=== PATIENT | female | born 1970 | race Caucasian/White ===

== ENCOUNTER 2023-07-22 06:37 | Outpatient (OUT) | payer OTHER, SELFPAY ==
[2023-07-22 07:24] LABS: Estimated Average Glucose 143 mg/dL; Glycohemoglobin A1C 6.6 % (4.5-6.2)
[2023-07-22 07:36] LABS: Alanine Aminotransferase 34 U/L (14-59); Albumin Globulin Ratio 1.1; Albumin Level 3.8 g/dL (3.4-5.0); Alkaline Phosphatase 99 U/L (46-116); Anion Gap 14.2; Aspartate Amino Transferase 22 U/L (15-37); BUN Creatinine Ratio 20.2; Bilirubin Total 0.5 mg/dL (0.2-1.0); Calcium 9.6 mg/dL (8.5-10.1); Carbon Dioxide 27.9 mmol/L (21.0-32.0); Chloride 104 mmol/L (98-107); Chol HDL Ratio 4.6; Cholesterol 216 mg/dL (<=200); Estimated GFR (African America >60 (>=60); Estimated GFR (Non-African Ame >60 (>=60); Free T3 3.41 pg/mL (2.18-3.98); Globulin 3.4 g/dL; Glucose 133 mg/dL (74-106); HDL Cholesterol 47 mg/dL (40-60); Potassium 4.1 mmol/L (3.5-5.1); Sodium 142 mmol/L (136-145); Thyroid Stimulating Hormone 2.475 uIU/mL (0.358-3.740); Total Protein 7.2 g/dL (6.4-8.2); Triglycerides 245 mg/dL (<=150)
[2023-07-22 07:45] LABS: Basophils Absolute Auto 0.1 10^3/uL (0.0-0.1); Basophils Percent Auto 0.8 % (0.2-2.0); Eosinophils Absolute Auto 0.2 10^3/uL (0.0-0.7); Eosinophils Percent Auto 2.3 % (0.9-7.0); Hematocrit 45.5 % (36.0-48.0); Hemoglobin 14.3 g/dL (12.0-16.0); Immature Granulocytes Abs Auto 0.03 10^3/uL (0.00-0.03); Immature Granulocytes Pct Auto 0.4 % (0.0-0.5); Lymphocytes Absolute Auto 2.6 10^3/uL (1.2-3.8); Lymphocytes Percent Auto 32.3 % (20.5-60.0); Mean Corpuscular HGB Conc 31.4 g/dL (29.9-35.2); Mean Corpuscular Hemoglobin 26.8 pg (26.7-34.0); Mean Corpuscular Volume 85.2 fL (81.0-99.0); Mean Platelet Volume 9.7 fL (9.5-13.5); Monocytes Absolute Auto 0.8 10^3/uL (0.3-0.8); Monocytes Percent Auto 9.6 % (1.7-12.0); Neutrophils Absolute Auto 4.4 10^3/uL (1.4-6.5); Neutrophils Percent Auto 54.6 % (43.0-75.0); Platelet Count 274 10^3/uL (150-450); Red Blood Count 5.34 10^6/uL (4.20-5.40); Red Cell Distribution Width 14.3 % (11.0-15.0)
== END 2023-07-22 06:38 | disposition home or self-care (01) ==
LOC: LAB 06:37
PROVIDERS: PCP Family Medicine; Visit Provider Family Medicine
DX: Z00.00 Encounter for general adult medical examination without abnormal findings (principal); D64.9 Anemia, unspecified; E78.01 Familial hypercholesterolemia; E11.9 Type 2 diabetes mellitus without complications; R53.83 Other fatigue; Z79.899 Other long term (current) drug therapy
CPT/HCPCS: 36415; 80053; 80061; 83036; 84436; 84443; 84481; 85025

== ENCOUNTER 2024-02-29 07:07 | Outpatient (OUT) | payer OTHER, SELFPAY ==
--- OUTSIDE RECORDS SUMMARY | 2024-02-29 07:11 | XMS_ITS | CCD ---
Author Organization [facility] Care Team Providers Care Rug Measurer Name Role Phone DR JOSE FINCH Primary Care Unavailable JOSETTE, DR GARCIA Consulting Unavailable DR JOSE FINCH Attending Unavailable JOSETTE, DR GARCIA Admitting Unavailable JOSETTE, DR GARCIA Primary Care Unavailable DR JOSE FINCH Consulting Unavailable DR JOSE FINCH Attending Unavailable JOSETTE, DR GARCIA Admitting Unavailable JOSETTE, DR GARCIA Admitting Unavailable DR JOSE FINCH Primary Care Unavailable DR JOSE FINCH Consulting Unavailable DR JOSE FINCH Attending Unavailable Jose Finch MD Primary Care Provider [phone] JOSE FINCH Primary Care Unavailable JEFF BLOOD Referring Unavailable Allergies Allergy Classification Reported Allergen(s) Allergy Type Date of Onset Reaction(s) Facility (1 source) Penicillin Drug Allergy [facility] Repository (1 source) Penicillins Propensity to adverse reactions to drug [facility] Medications Current Medications Medication Drug Class(es) Dates Sig (Normalized) Sig (Original) ezetimibe 10 mg oral tablet (1 source) Dietary Cholesterol Absorption Inhibitor Start: 06-18-2022 take 1 tablet by mouth once daily ezetimibe (ZETIA) 10 MG tablet TAKE 1 TABLET BY MOUTH EVERY DAY 0 06/18/2022 Active fluocinonide 0.0005 mg/mg topical ointment (1 source) Corticosteroid Start: 07-04-2022 fluocinonide (LIDEX) 0.05 % ointment APPLY SPARINGLY TO AFFECTED AREA TWICE A DAY 0 07/04/2022 Active nystatin 100 unt/mg topical powder (1 source) Polyene Antifungal Start: 07-18-2022 nystatin (MYCOSTATIN) 179644 UNIT/GM powder Indications: Yeast infection of the skin Apply 3 times daily as needed for skin infection 30 g 3 07/18/2022 Active pioglitazone 15 mg oral tablet (1 source) Peroxisome Proliferator Receptor alpha Agonist, Peroxisome Proliferator Receptor gamma Agonist, Thiazolidinedione Start: 05-24-2022 take 1 tablet by mouth once daily pioglitazone (ACTOS) 15 MG tablet TAKE 1 TABLET BY MOUTH EVERY DAY 0 05/24/2022 Active 0.25 mg, 0.5 mg dose 1.5 ml semaglutide 1.34 mg/ml pen injector (1 source) Start: 07-16-2022 OZEMPIC, 0.25 OR 0.5 MG/DOSE, 2 MG/1.5ML SOPN simvastatin 20 mg oral tablet (1 source) HMG-CoA Reductase Inhibitor Start: 06-10-2022 take 1 tablet by mouth once daily simvastatin (ZOCOR) 20 MG tablet TAKE 1 TABLET BY MOUTH EVERY DAY 0 06/10/2022 Active triamcinolone acetonide 1 mg/ml topical cream (1 source) Corticosteroid Start: 07-04-2022 triamcinolone (KENALOG) 0.1 % cream APPLY TO AFFECTED AREA TWICE A DAY 0 07/04/2022 Active Problems Active Problems Problem Classification Problem Date Documented Da te Episodic/Chronic Diabetes mellitus without complication (1 source) Type 2 diabetes mellitus without complications; Translations: [TYPE 2 DM WITHOUT COMPLICATIONS] Onset: 05-23-2022 Chronic Malaise and fatigue (1 source) Other fatigue; Translations: [OTHER FATIGUE] Onset: 05-23-2022 Episodic Unclassified (2 sources) CONTACT W/AND (SUSP) EXPOS COVID-19; Translations: [CONTACT W/AND (SUSP) EXPOS COVID-19] Onset: 06-15-2021 Unclassified (1 source) COUGH, UNSPECIFIED; Translations: [COUGH, UNSPECIFIED] Onset: 06-15-2021 Viral infection (1 source) COVID-19; Translations: [COVID-19] Onset: 06-15-2021 Past or Other Problems Problem Classification Problem Date Documented Da te Episodic/Chronic Other upper respiratory infections (1 source) Acute sinusitis, unspecified; Translations: [ACUTE SINUSITIS UNSPECIFIED] Onset: 06-15-2021 Episodic Unclassified (1 source) CONTACT W/AND (SUSP) EXPOS COVID-19; Translations: [CONTACT W/AND (SUSP) EXPOS COVID-19] Onset: 06-13-2021 Results Test Name Value Interpretation Reference Range Facility Cytologyon 07-18-2022 Cytology (NOTE) INTERPRETATION Vaginal material, (ThinPrep vial, Imaging-assisted review): Specimen Adequacy: Satisfactory for evaluation. Descriptive Diagnosis: Negative for intraepithelial lesion or malignancy. Logistics System Engineer: KUSH MILES(ASCP) Electronically Signed Out 07/31/2022 Source: A: Vaginal material, (ThinPrep vial, Imaging-assisted review) Clinical History Hysterectomy Z01.419 Routine department helper exam without abnormal findings High risk HPV DNA testing is requested if the diagnosis is abnormal GYNECOLOGIC CYTOLOGY REPORT Patient Name: CATHERINE MAURICE [facility] Rec: [id number] Path Number: [id number] [facility] CON[facility] PATHOLOG[facility] [address] [place] [id number] Normal [facility] Comment on above: Performed By: #### P PPVP #### [address] [address] [place] Rehairer: Carlos Ordonez MD [facility] BLD IMMUNO SCREENon OCCULT BLOOD Negative Normal NEGATIVE [facility] Comment on above: Performed By: #### O BSCRN #### [facility] [address] [place] [address] Dr. Rob Alarcon CBC AUTO DIFFon 05-19-2022 BASO # 0.1 103/ul Normal 0.0-0.1 [facility] Comment on above: Performed By: #### C BC #### [facility] [address] [place] [address] Dr. Rob Alarcon Basophils/100 WBC (Bld) 0.6 % Normal 0.2-2.0 [facility] Comment on above: Performed By: #### C BC #### [facility] [address] [place] [address] Dr. Rob Alarcon EO # 0.1 103/ul Normal 0.0-0.7 [facility] Comment on above: Performed By: #### C BC #### [facility] [address] [place] [address] Dr. Rob Alarcon Eosinophils/100 WBC (Bld) 1.2 % Normal 0.9-7.0 [facility] Comment on above: Performed By: #### C BC #### [facility] [address] [place] [address] Dr. Rob Alarcon Erythrocyte distribution width (RBC) [Ratio] 13.5 % Normal 11.0-15.0 [facility] Comment on above: Performed By: #### C BC #### [facility] [address] [place] [address] Dr. Rob Alarcon Hematocrit (Bld) [Volume fraction] 44.1 % Normal 36.0-48.0 [facility] Comment on above: Performed By: #### C BC #### [facility] [address] [place] [address] Dr. Rob Alarcon Hemoglobin (Bld) [Mass/Vol] 14.7 g/dL Normal 12.0-16.0 [facility] Comment on above: Performed By: #### C BC #### [facility] [address] [place] [address] Dr. Rob Alarcon IG # 0.14 10e3/ul Critically high 0.00-0.03 [facility] Comment on above: Performed By: #### C BC #### [facility] [address] [place] [address] Dr. Rob Alarcon IG % 1.7 % Critically high 0.0-0.5 [facility] Comment on above: Performed By: #### C BC #### [facility] [address] [place] [address] Dr. Rob Alarcon LYMPH # 2.6 103/ul Normal 1.2-3.8 [facility] Comment on above: Performed By: #### C BC #### [facility] [address] [place] [address] Dr. Rob Alarcon Lymphocytes/100 WBC (Bld) 31.4 % Normal 20.5-60.0 [facility] Comment on above: Performed By: #### C BC #### [facility] [address] [place] [address] Dr. Rob Alarcon MANUAL DIFF REQ NO Normal [facility] Comment on above: Performed By: #### C BC #### [facility] [address] [place] [address] Dr. Rob Alarcon MCH (RBC) [Entitic mass] 27.0 pg Normal 26.7-34.0 [facility] Comment on above: Performed By: #### C BC #### [facility] [address] [place] [address] Dr. Rob Alarcon MCHC (RBC) [Mass/Vol] 33.3 g/dL Normal 29.9-35.2 [facility] Comment on above: Performed By: #### C BC #### [facility] [address] [place] [address] Dr. Rob Alarcon MCV (RBC) [Entitic vol] 81.1 fL Normal 81.0-99.0 [facility] Comment on above: Performed By: #### C BC #### [facility] [address] [place] [address] Dr. Rob Alarcon MONO # 0.8 103/ul Normal 0.3-0.8 [facility] Comment on above: Performed By: #### C BC #### [facility] [address] [place] [address] Dr. Rob Alarcon Monocytes/100 WBC (Bld) 9.1 % Normal 1.7-12.0 [facility] Comment on above: Performed By: #### C BC #### [facility] [address] [place] [address] Dr. Rob Alarcon NEUT # 4.7 103/ul Normal 1.4-6.5 [facility] Comment on above: Performed By: #### C BC #### [facility] [address] [place] [address] Dr. Rob Alarcon Neutrophils/100 WBC (Bld) 56.0 % Normal 43.0-75.0 [facility] Comment on above: Performed By: #### C BC #### [facility] [address] [place] [address] Dr. Rob Alarcon Platelet mean volume (Bld) [Entitic vol] 9.2 fL Critically low 9.5-13.5 [facility] Comment on above: Performed By: #### C BC #### [facility] [address] [address] [address] Rob Alarcon PLT 308 103/ul Normal 150-450 [facility] Comment on above: Performed By: #### C BC #### [facility] [address] [address] [address] Rob Alarcon RBC 5.44 106/ul Critically high 4.20-5.40 [facility] Comment on above: Performed By: #### C BC #### [facility] [address] [address] [address] Rob Alarcon WBC 8.3 103/ul Normal 4.0-11.0 [facility] Comment on above: Performed By: #### C BC #### [facility] [address] [place] [address] Dr. Rob Alarcon FREE T3on 05-19-2022 FREE T3 3.38 pg/mlL Normal 2.18-3.98 [facility] Comment on above: Performed By: #### L IPID, TSH, T4, CMP, FT3 #### [facility] [address] [place] [address] Dr. Rob Alarcon GLYCOHEMOGLOBIN A1Con 2021 ADA RECOMMENDATION SEE BELOW Normal [facility] Comment on above: Result Comment: ADA RECOMMENDED LIMIT 4.0 - 6.0 ADA THERAPEUTIC TARGET < 7.0 ACTION SUGGESTED > 7.0 Performed By: #### A 1C #### [facility] [address] [place] [address] Dr. Rob Alarcon Glucose [Mass/Vol] 203 mg/dL Normal [facility] Comment on above: Performed By: #### A 1C #### [facility] [address] [place] [address] Dr. Rob Alarcon HbA1c (Bld) [Mass fraction] 8.7 % Critically high 4.5-6.2 [facility] Comment on above: Performed By: #### A 1C #### [facility] [address] [address] [address] Rob Alarcon LIPID PROFILEon 05-19-2022 CHOL-HDL RATIO NORM SEE BELOW Normal [facility] Comment on above: Result Comment: 3.3 - 4.4 LOW RISK 4.4 - 7.1 AVERAGE RISK 7.1 - 11.0 MODERATE RISK >11.0 HIGH RISK Performed By: #### L IPID, TSH, T4, CMP, FT3 #### [facility] [address] [place] [address] Dr. Rob Alarcon Cholesterol [Mass/Vol] 192 mg/dL Normal <=200 [facility] Comment on above: Performed By: #### L IPID, TSH, T4, CMP, FT3 #### [facility] [address] [place] [address] Dr. Rob Alarcon Cholesterol in HDL [Mass/Vol] 47 mg/dL Normal 40-60 [facility] Comment on above: Performed By: #### L IPID, TSH, T4, CMP, FT3 #### [facility] [address] [place] [address] Dr. Rob Alarcon Cholesterol in LDL [Mass/Vol] 82.6 mg/dL Normal [facility] Comment on above: Performed By: #### L IPID, TSH, T4, CMP, FT3 #### [facility] [address] [place] [address] Dr. Rob Alarcon Cholesterol.total/Ch olesterol in HDL [Mass ratio] 4.1 {ratio} Normal [facility] Comment on above: Performed By: #### L IPID, TSH, T4, CMP, FT3 #### [facility] [address] [place] [address] Dr. Rob Alarcon HDL NORMAL > or = 60 mg/dl - LO W CARDIOVASCULAR RISK <40 mg/dl - HIGH CARDIOVASCULAR RISK Normal [facility] Comment on above: Performed By: #### L IPID, TSH, T4, CMP, FT3 #### [facility] [address] [place] [address] Dr. Rob Alarcon LDL CALC NORMAL SEE BELOW Normal [facility] Comment on above: Result Comment: <100 mg/dl OPTIMAL 100 - 129 mg/dl NEAR OR ABOVE OPTIMAL 130 - 159 mg/dl BORDERLINE HIGH 160 - 189 mg/dl HIGH >190 mg/dl VERY HIGH Performed By: #### L IPID, TSH, T4, CMP, FT3 #### [facility] [address] [place] [address] Dr. Rob Alarcon Triglyceride [Mass/Vol] 312 mg/dL Critically high <=150 [facility] Comment on above: Performed By: #### L IPID, TSH, T4, CMP, FT3 #### [facility] [address] [place] [address] Dr. Rob Alarcon VLDL CALC 62.4 mg/dL Normal [facility] Comment on above: Performed By: #### L IPID, TSH, T4, CMP, FT3 #### [facility] [address] [place] [address] Dr. Rob Alarcon PROF 14(COMP METB)on 022 Albumin [Mass/Vol] 3.9 g/dL Normal 3.4-5.0 [facility] Comment on above: Performed By: #### L IPID, TSH, T4, CMP, FT3 #### [facility] [address] [place] [address] Dr. Rob Alarcon Albumin/Globulin [Mass ratio] 1.2 {ratio} Normal [facility] Comment on above: Performed By: #### L IPID, TSH, T4, CMP, FT3 #### [facility] [address] [place] [address] Dr. Rob Alarcon ALP [Catalytic activity/Vol] 162 U/L Critically high 46-116 [facility] Comment on above: Performed By: #### L IPID, TSH, T4, CMP, FT3 #### [facility] [address] [place] [address] Dr. Rob Alarcon ALT [Catalytic activity/Vol] 55 U/L Normal 14-59 [facility] Comment on above: Performed By: #### L IPID, TSH, T4, CMP, FT3 #### [facility] [address] [place] [address] Dr. Rob Alarcon Anion gap [Moles/Vol] 12.4 mmol/L Normal [facility] Comment on above: Performed By: #### L IPID, TSH, T4, CMP, FT3 #### [facility] [address] [address] [address] Rob Alarcon AST [Catalytic activity/Vol] 34 U/L Normal 15-37 [facility] Comment on above: Performed By: #### L IPID, TSH, T4, CMP, FT3 #### [facility] [address] [address] [address] Rob Alarcon Bilirubin [Mass/Vol] 0.4 mg/dL Normal 0.2-1.0 [facility] Comment on above: Performed By: #### L IPID, TSH, T4, CMP, FT3 #### [facility] [address] [place] [address] Dr. Rob Alarcon Calcium [Mass/Vol] 9.2 mg/dL Normal 8.5-10.1 [facility] Comment on above: Performed By: #### L IPID, TSH, T4, CMP, FT3 #### [facility] [address] [address] [address] Rob Alarcon Chloride [Moles/Vol] 101 mmol/L Normal 98-107 [facility] Comment on above: Performed By: #### L IPID, TSH, T4, CMP, FT3 #### [facility] [address] [address] [address] Rob Alarcon CO2 [Moles/Vol] 28.7 mmol/L Normal 21.0-32.0 [facility] Comment on above: Performed By: #### L IPID, TSH, T4, CMP, FT3 #### [facility] [address] [address] [address] Rob Alarcon Creatinine [Mass/Vol] 0.81 mg/dL Normal 0.55-1.02 [facility] Comment on above: Performed By: #### L IPID, TSH, T4, CMP, FT3 #### [facility] [address] [address] [address] Rob Alarcon EGFR-AF BENINESE >60 Normal >=60 [facility] Comment on above: Performed By: #### L IPID, TSH, T4, CMP, FT3 #### [facility] [address] [address] [address] Rob Alarcon EGFR-NON AF BENINESE >60 Normal >=60 [facility] Comment on above: Performed By: #### L IPID, TSH, T4, CMP, FT3 #### [facility] [address] [address] [address] Rob Alarcon Globulin (S) [Mass/Vol] 3.3 g/dL Normal [facility] Comment on above: Performed By: #### L IPID, TSH, T4, CMP, FT3 #### [facility] [address] [address] [address] Rob Alarcon Glucose [Mass/Vol] 186 mg/dL Critically high 74-106 [facility] Comment on above: Performed By: #### L IPID, TSH, T4, CMP, FT3 #### [facility] [address] [place] [address] Dr. Rob Alarcon Potassium [Moles/Vol] 4.1 mmol/L Normal 3.5-5.1 [facility] Comment on above: Performed By: #### L IPID, TSH, T4, CMP, FT3 #### [facility] [address] [place] [address] Dr. Rob Alarcon Protein [Mass/Vol] 7.2 g/dL Normal 6.4-8.2 [facility] Comment on above: Performed By: #### L IPID, TSH, T4, CMP, FT3 #### [facility] [address] [place] [address] Dr. Rob Alarcon Sodium [Moles/Vol] 138 mmol/L Normal 136-145 [facility] Comment on above: Performed By: #### L IPID, TSH, T4, CMP, FT3 #### [facility] [address] [place] [address] Dr. Rob Alarcon Urea nitrogen [Mass/Vol] 10.0 mg/dL Normal 7.0-18.0 [facility] Comment on above: Performed By: #### L IPID, TSH, T4, CMP, FT3 #### [facility] [address] [place] [address] Dr. Rob Alarcon Urea nitrogen/Creatinine [Mass ratio] 12.3 mg/mg Normal [facility] Comment on above: Performed By: #### L IPID, TSH, T4, CMP, FT3 #### [facility] [address] [place] [address] Dr. Rob Alarcon T4on 05-19-2022 T4 [Mass/Vol] 8.10 ug/dL Normal 4.80-13.90 [facility] Comment on above: Performed By: #### L IPID, TSH, T4, CMP, FT3 #### [facility] [address] [place] [address] Dr. Rob Alarcon TSHon 05-19-2022 TSH 1.120 uIU/mL Normal 0.358-3.740 [facility] Comment on above: Performed By: #### L IPID, TSH, T4, CMP, FT3 #### [facility] [address] [place] [address] Dr. Rob Alarcon VITAMIN D 25 OHon 05-19-2022 VIT D 25-OH 47.4 ng/mL Normal [facility] Comment on above: Performed By: #### V ITAD #### [facility] [address] [place] [address] Dr. Rob Alarcon VIT D RANGES SEE BELOW Normal [facility] Comment on above: Result Comment: <20 ng/mL Vit D deficient 20 - <30 ng/mL Vit D insufficient 30 - 100 ng/mL Vit D sufficient >100 ng/mL Potential Toxicity Performed By: #### V ITAD #### [facility] [address] [place] [address] Dr. Rob Alarcon Covid-19 PCR ([facility]on 06-03 SARS-CoV-2 (COVID-19) RNA MARGARITA+probe Ql (Unsp spec) Detected Critically abnormal NOT DETECTED [facility] Comment on above: Result Comment: This test is not yet approved or cleared by the [place] FDA. When there are no FDA-approved or cleared tests available, and other criteria are met, FDA can make tests available under an emergency access mechanism called an Emergency Use Authorization (EUA). The EUA for this test is supported by the Rehabilitation Therapy Aide of Health and Human Service's (HHS's) declaration that circumstances exist to justify the emergency use of in vitro diagnostics for the detection and/or diagnosis of the virus that causes COVID-19. This EUA will remain in effect (meaning this test can be used) for the duration of the COVID-19 declaration justifying emergency of IVDs, unless it is terminated or revoked by FDA (after which the test may no longer be used). Performed By: #### C [facility] #### [facility] [address] [place] [address] Dr. Rob Alarcon General Surgery Office/Clini c Noteon 10-31-2020 General Surgery Office/Clinic Note Chief Complaint post operative visit. HPI Staff 7 day s/p Wide excision basal cell cancer, right nares completed on 10/19/20. Denies experiencing symptoms of pain, bleeding, or discharge. Not taking any medications for pain. History of Present Illness 1 week s/p wide excision recurrent basal cell carcinoma right nares; doing well, no drainage or pain; pathology with negative margins. Review of Systems PHQ Score Initial Depression Screen Score: 0 ROS - Provider Constitutional: no fever, no sweats, no weight loss. Eyes: no glasses, no blurred vision, no visual loss. ENMT: no dentures, no hoarseness, no swallowing difficulties, no hearing loss, no ear infection(s), no nose bleeds. Cardiovascular: high blood pressure, no chest pain, regular heartbeat, no heart murmur. Respiratory: no shortness of breath, no cough, no asthma, no wheezing. Gastrointestinal: no nausea, no vomiting, no diarrhea, no constipation, no blood in stool, no change in bowel habits, no abdominal pain, no hepatitis. Genitourinary: no kidney stones, no urine infection, no dysuria. Musculoskeletal: no pain, no weakness. Skin: no changing moles, no rash, no skin lumps. Neurologic: no seizures, no epilepsy, no headache. Psychiatric: no emotional or psychiatric problem. Heme/Lymph: no bleeding problems, no anemia, no blood clots, no transfusions. Allergy/Immunologic: no swollen lymph nodes/glands, no IV drug abuse. Other: Additional ROS info: Except as noted in the above Review of Systems and in the History of Present Illness, all other systems have been reviewed and are negative or noncontributory. Physical Exam Vitals & Measurements T: 36.8 ?C (Tympanic) skin: incision healing well, no erythema or drainage. Assessment/Plan 1. Basal cell carcinoma (BCC) of right side of nose (C44.311: Basal cell carcinoma of skin of nose) doing well, sutures removed; call with problems/questions. Follow-up No qualifying data available Problem List/Past Medical History Ongoing Adult BMI 37.0-37.9 kg/sq m Anxiety Basal cell carcinoma (BCC) of right side of nose Depression Diabetic peripheral neuropathy DM (diabetes mellitus) Dysphagia HTN (hypertension) Hypercholesterolemia Neoplasm of uncertain behavior of skin of face Nevus Scoliosis Tubular adenoma Tubular adenoma of colon Uterine fibroid Historical BMI 36.0-36.9,adult Occult blood positive stool Procedure/Surgical History Colonoscopy (2010), Abdominal hysterectomy, Bilateral tubal ligation, Caesarean section, Cholecystectomy. Medications Nexium 40mg Cap - DR, 1 tab(s), Oral, Daily simvastatin 20 mg Tab, 20 mg= 1 tab(s), Oral, Once a day (at bedtime) Zetia 10 mg Tab, 10 mg= 1 tab(s), Oral, Daily Allergies penicillin (Rash) Social History Alcohol - Denies Alcohol Use, 02/11/2019 Substance Abuse - Denies Substance Abuse, 02/11/2019 Tobacco Former smoker, quit more than 30 days ago Tobacco Use:. Never Smokeless Tobacco Use:. Stopped age 26 Years., 10/26/2020 Family History Bilateral primary ovarian cancer: Aunt. Primary malignant neoplasm of lung: Brother. Immunizations Vaccine Date Status Comments influenza virus vaccine, inactivated - Not Given Patient Refuses Normal [facility] Comment on above: Result Comment: Elec tronically Signed By: CORTES PEREZ, Miah Love\Date and Time Signed: 10/31/20 10:11 EDT Ambulatory Clinical Summaryo n 10-26-2020 Ambulatory Clinical Summary {[id number] Normal [facility] Pathology Noteon 10-25-2020 Pathology Note [id number] 0CD:127 Normal [facility] Operative Reporton Operative Report [id number] 0CD:127 Normal [facility] Lab Reportson 10-17-2020 Lab Reports [id number] 0CD:127 Normal [facility] Consent for Procedure/Surger yon 10-06-2020 Consent for Procedure/Surgery [id number] 0CD:127 Normal [facility] Ambulatory Clinical Summaryo n 10-05-2020 Ambulatory Clinical Summary {[id number] Normal [facility] Patient Educationon 10-06-19 Patient Education Oncology Basal Cell Carcinoma Basal cell carcinoma is the most common form of skin cancer. It begins in the basal cells, which are at the bottom of the outer skin layer (epidermis). Basal cell carcinoma can almost always be cured. It rarely spreads to other areas of the body (metastasizes). It may come back at the same location (recur), but it can be treated again if this happens. Basal cell carcinoma occurs most often on parts of the body that are frequently exposed to the sun, such as: ? Parts of the head, including the scalp or face. ? Ears. ? Neck. ? Arms or legs. ? Backs of the hands. What are the causes? This condition is usually caused by exposure to ultraviolet (UV) light. UV light may come from the sun or from tanning beds. Other causes include: ? Exposure to a highly poisonous metal (arsenic). ? Exposure to high-energy X-rays (radiation). ? Exposure to toxic tars and oils. ? Certain genetic conditions, such as a condition that makes a person sensitive to sunlight (xeroderma pigmentosum). What increases the risk? You are more likely to develop this condition if: ? You are older than 40 years of age. ? You have: ? Fair skin (light complexion). ? Blond or red hair. ? Blue, green, or ceron eyes. ? Childhood freckling. ? Had sun exposure over long periods of time, especially during childhood. ? Had repeated sunburns. ? A weakened immune system. ? Been exposed to certain chemicals, such as tar, soot, and arsenic. ? Chronic inflammatory conditions. ? Chronic infections. ? You use tanning beds. What are the signs or symptoms? The main symptom of this condition is a growth or lesion on the skin. ? The shape and color of the growth or lesion may vary. The main types include: ? An open sore that may remain open for 3 weeks or longer. The sore may bleed or crust. This type of lesion can be an early sign of basal cell carcinoma. Basal cell carcinoma often shows up as a sore that does not heal. ? A reddish area that may crust, itch, or cause discomfort. This may occur on areas that are exposed to the sun. These patches might be easier to feel than to see. ? A shiny or clear bump that is red, white, or pink. In people who have dark hair, the bump is often chinchilla, black, or brown. These bumps can look like moles. ? A pink growth with a raised border. The growth will have a crusted and indented area in the center. Small blood vessels may appear on the surface of the growth as it gets bigger. ? A scar-like area that looks like shiny, stretched skin. The area may be white, yellow, or waxy. It often has irregular borders. This may be a sign of more aggressive basal cell carcinoma. How is this diagnosed? This condition may be diagnosed with: ? A physical exam. ? Removal of a tissue sample to be examined under a microscope (biopsy). How is this treated? Treatment for this condition involves removing the cancerous tissue. The method that is used for this depends on the type, size, location, and number of tumors. Possible treatments include: ? Mohs surgery. In this procedure, the cancerous skin cells are removed layer by layer until all of the tumor has been removed. ? Surgical removal (excision) of the tumor. This involves removing the entire tumor and a small amount of normal skin that surrounds it. ? Cryosurgery. This involves freezing the tumor with liquid nitrogen. ? Plastic surgery. The tumor is removed, and healthy skin from another part of the body is used to cover the wound. This may be done for large tumors that are in areas where it is not possible to stretch the nearby skin to sew the edges of the wound together. ? Radiation. This may be used for tumors on the face. ? Photodynamic therapy. A chemical cream is applied to the skin, and light exposure is used to activate the chemical. ? Electrodesiccation and curettage. This involves alternately scraping and burning the tumor while using an electric current to control bleeding. ? Chemical treatments, such as imiquimod cream and interferon injections. These may be used to remove superficial tumors with minimal scarring. Follow these instructions at home: ? Avoid direct exposure to the sun. ? Do self-exams as told by your health care provider. Look for new spots or changes in your skin. ? Keep all follow-up visits as told by your health care provider. This is important. How is this prevented? ? Avoid the sun when it is the strongest. This is usually between 10 a.m. and 4 p.m. ? When you are out in the sun, use a sunscreen that has a sun protection factor (SPF) of at least 30. ? Apply sunscreen at least 30 minutes before exposure to the sun. ? Reapply sunscreen every 2?4 hours while you are outside. Also reapply it after swimming and after excessive sweating. ? Always wear hats, protective clothing, and UV-blocking sunglasses when you are outdoors. ? Do not use tanning bed (more content not included)... Normal [facility] Patient Education Physical Medicine an d Rehabilitation Exercising to Lose Weight Exercise is structured, repetitive physical activity to improve fitness and health. Getting regular exercise is important for everyone. It is especially important if you are overweight. Being overweight increases your risk of heart disease, stroke, diabetes, high blood pressure, and several types of cancer. Reducing your calorie intake and exercising can help you lose weight. Exercise is usually categorized as moderate or vigorous intensity. To lose weight, most people need to do a certain amount of moderate-intensity or vigorous-intensity exercise each week. Moderate-intensity exercise Moderate-intensity exercise is any activity that gets you moving enough to burn at least three times more energy (calories) than if you were sitting. Examples of moderate exercise include: ? Walking a mile in 15 minutes. ? Doing light yard work. ? Biking at an easy pace. Most people should get at least 150 minutes (2 hours and 30 minutes) a week of moderate-intensity exercise to maintain their body weight. Vigorous-intensity exercise Vigorous-intensity exercise is any activity that gets you moving enough to burn at least six times more calories than if you were sitting. When you exercise at this intensity, you should be working hard enough that you are not able to carry on a conversation. Examples of vigorous exercise include: ? Running. ? Playing a team sport, such as football, basketball, and soccer. ? Jumping rope. Most people should get at least 75 minutes (1 hour and 15 minutes) a week of vigorous-intensity exercise to maintain their body weight. How can exercise affect me? When you exercise enough to burn more calories than you eat, you lose weight. Exercise also reduces body fat and builds muscle. The more muscle you have, the more calories you burn. Exercise also: ? Improves mood. ? Reduces stress and tension. ? Improves your overall fitness, flexibility, and endurance. ? Increases bone strength. The amount of exercise you need to lose weight depends on: ? Your age. ? The type of exercise. ? Any health conditions you have. ? Your overall physical ability. Talk to your health care provider about how much exercise you need and what types of activities are safe for you. What actions can I take to lose weight? Nutrition ? Make changes to your diet as told by your health care provider or diet and nutrition tech (dietitian). This may include: ? Eating fewer calories. ? Eating more protein. ? Eating less unhealthy fats. ? Eating a diet that includes fresh fruits and vegetables, whole grains, low-fat dairy products, and lean protein. ? Avoiding foods with added fat, salt, and sugar. ? Drink plenty of water while you exercise to prevent dehydration or heat stroke. Activity ? Choose an activity that you enjoy and set realistic goals. Your health care provider can help you make an exercise plan that works for you. ? Exercise at a moderate or vigorous intensity most days of the week. ? The intensity of exercise may vary from person to person. You can tell how intense a workout is for you by paying attention to your breathing and heartbeat. Most people will notice their breathing and heartbeat get faster with more intense exercise. ? Do resistance training twice each week, such as: ? Push-ups. ? Sit-ups. ? Lifting weights. ? Using resistance bands. ? Getting short amounts of exercise can be just as helpful as long structured periods of exercise. If you have trouble finding time to exercise, try to include exercise in your daily routine. ? Get up, stretch, and walk around every 30 minutes throughout the day. ? Go for a walk during your lunch break. ? Park your car farther away from your destination. ? If you take public transportation, get off one stop early and walk the rest of the way. ? Make phone calls while standing up and walking around. ? Take the stairs instead of elevators or escalators. ? Wear comfortable clothes and shoes with good support. ? Do not exercise so much that you hurt yourself, feel dizzy, or get very short of breath. Where to find more information ? [place] Department of Health and Human Services: www.hhs.gov ? Centers for Disease Control and Prevention (CDC): www.cdc.gov Contact a health care provider: ? Before starting a new exercise program. ? If you have questions or concerns about your weight. ? If you have a medical problem that keeps you from exercising. Get help right away if you have any of the following while exercising: ? Injury. ? Dizziness. ? Difficulty breathing or shortness of breath that does not go away when you stop exercising. ? Chest pain. ? Rapid heartbeat. Summary ? Being overweight increases your risk of heart disease, stroke, diabetes, high blood pressure, and several types of cancer. ? Losing weight borrero (more content not included)... Normal [facility] Ambulatory Clinical Summaryo n 07-13-2020 Ambulatory Clinical Summary {[id number] Normal [facility] General Surgery Office/Clini c Noteon 07-13-2020 General Surgery Office/Clinic Note HPI Staff One week post operative visit following excision of neoplasm from nose. Patient states sutures fell out on Saturday. Denies bleeding or drainage from the incision. History of Present Illness 1 week s/p excisional biopsy nonhealing lesion right nares; pathology with basal cell carcinoma, lesion fell apart when excised, very small, unable to determine margins; Review of Systems ROS - Provider Constitutional: no fever, no sweats, no weight loss. Eyes: no glasses, no blurred vision, no visual loss. ENMT: no dentures, no hoarseness, no swallowing difficulties, no hearing loss, no ear infection(s), no nose bleeds. Cardiovascular: normal blood pressure, no chest pain, regular heartbeat, no heart murmur. Respiratory: no shortness of breath, no cough, no asthma, no wheezing. Gastrointestinal: no nausea, no vomiting, no diarrhea, no constipation, no blood in stool, no change in bowel habits, no abdominal pain, no hepatitis. Genitourinary: no kidney stones, no urine infection, no dysuria. Musculoskeletal: no pain, no weakness. Skin: no changing moles, no rash, no skin lumps. Neurologic: no seizures, no epilepsy, no headache. Psychiatric: no emotional or psychiatric problem. Heme/Lymph: no bleeding problems, no anemia, no blood clots, no transfusions. Allergy/Immunologic: no swollen lymph nodes/glands, no IV drug abuse. Other: Additional ROS info: Except as noted in the above Review of Systems and in the History of Present Illness, all other systems have been reviewed and are negative or noncontributory. Physical Exam skin: incision healing well, no drainage or erythema Assessment/Plan 1. Basal cell carcinoma (BCC) of right side of nose (C44.311: Basal cell carcinoma of skin of nose) monitor area for nonhealing or nodularity; if any evidence of recurrence, will proceed with wide excision at the hospital under local anesthesia; call with problems/questions. Follow-up No qualifying data available Problem List/Past Medical History Ongoing Anxiety Basal cell carcinoma (BCC) of right side of nose BMI 36.0-36.9,adult Depression Diabetic peripheral neuropathy DM (diabetes mellitus) Dysphagia HTN (hypertension) Hypercholesterolemia Neoplasm of uncertain behavior of skin of face Nevus Scoliosis Tubular adenoma Tubular adenoma of colon Uterine fibroid Historical Occult blood positive stool Procedure/Surgical History Colonoscopy (2010), Abdominal hysterectomy, Bilateral tubal ligation, Caesarean section, Cholecystectomy. Medications Adipex-P 37.5 mg Tab, 37.5 mg= 1 tab(s), Oral, Daily buPROPion 300 mg XL /24 hrs, 300 mg= 1 tab(s), Oral, Daily Nexium 40mg Cap - DR, 1 tab(s), Oral, Daily simvastatin 20 mg Tab, 20 mg= 1 tab(s), Oral, Once a day (at bedtime) triamcinolone Top 0.1% Crm, 1 valerie, Topical, BID Zetia 10 mg Tab, 10 mg= 1 tab(s), Oral, Daily Allergies penicillin (Rash) Social History Alcohol - Denies Alcohol Use, 02/11/2019 Substance Abuse - Denies Substance Abuse, 02/11/2019 Tobacco Former smoker, quit more than 30 days ago Tobacco Use:. Never Smokeless Tobacco Use:. Stopped age 26 Years., 06/29/2020 Family History Bilateral primary ovarian cancer: Aunt. Primary malignant neoplasm of lung: Brother. Immunizations Vaccine Date Status Comments influenza virus vaccine, inactivated - Not Given Patient Refuses Normal [facility] Comment on above: Result Comment: Elec tronically Signed By: CORTES PEREZ, Miah Love\Date and Time Signed: 07/13/20 13:31 EST Pathology Noteon 07-13-2020 Pathology Note [id number] 0CD:127 Normal [facility] Ambulatory Clinical Summaryo n 07-06-2020 Ambulatory Clinical Summary {[id number] Normal [facility] General Surgery Office/Clini c Noteon 07-06-2020 General Surgery Office/Clinic Note History of Present Illness for excision nonhealing lesion right nares; no change. Review of Systems ROS - Provider Constitutional: no fever, no sweats, no weight loss. Eyes: no glasses, no blurred vision, no visual loss. ENMT: no dentures, no hoarseness, no swallowing difficulties, no hearing loss, no ear infection(s), no nose bleeds. Cardiovascular: normal blood pressure, no chest pain, regular heartbeat, no heart murmur. Respiratory: no shortness of breath, no cough, no asthma, no wheezing. Gastrointestinal: no nausea, no vomiting, no diarrhea, no constipation, no blood in stool, no change in bowel habits, no abdominal pain, no hepatitis. Genitourinary: no kidney stones, no urine infection, no dysuria. Musculoskeletal: no pain, no weakness. Skin: no changing moles, no rash, no skin lumps. non healing lesion, right nares Neurologic: no seizures, no epilepsy, no headache. Psychiatric: no emotional or psychiatric problem. Heme/Lymph: no bleeding problems, no anemia, no blood clots, no transfusions. Allergy/Immunologic: no swollen lymph nodes/glands, no IV drug abuse. Other: Additional ROS info: Except as noted in the above Review of Systems and in the History of Present Illness, all other systems have been reviewed and are negative or noncontributory. Physical Exam skin: 3 mm open area right nares, no drainage, no erythema. Procedure right nares lesion prepped and draped, anesthetized with 1% lidocaine, area excised with # 15 blade, total length 3 mm, closed with interrupted 5-0 nylon sutures, tolerated well, ebl < 2ml. Assessment/Plan 1. Neoplasm of uncertain behavior of skin of face (D48.5: Neoplasm of uncertain behavior of skin) excised under local anesthesia; tolerated well; follow up in 1 week. call sooner if problems/questions. Ordered: Pathology Tissue Exam Follow-up No qualifying data available Problem List/Past Medical History Ongoing Anxiety BMI 36.0-36.9,adult Depression Diabetic peripheral neuropathy DM (diabetes mellitus) Dysphagia HTN (hypertension) Hypercholesterolemia Neoplasm of uncertain behavior of skin of face Nevus Scoliosis Tubular adenoma Tubular adenoma of colon Uterine fibroid Historical Occult blood positive stool Procedure/Surgical History Colonoscopy (2010), Abdominal hysterectomy, Bilateral tubal ligation, Caesarean section, Cholecystectomy. Medications Adipex-P 37.5 mg Tab, 37.5 mg= 1 tab(s), Oral, Daily buPROPion 300 mg XL /24 hrs, 300 mg= 1 tab(s), Oral, Daily Nexium 40mg Cap - DR, 1 tab(s), Oral, Daily simvastatin 20 mg Tab, 20 mg= 1 tab(s), Oral, Once a day (at bedtime) triamcinolone Top 0.1% Crm, 1 valerie, Topical, BID Zetia 10 mg Tab, 10 mg= 1 tab(s), Oral, Daily Allergies penicillin (Rash) Social History Alcohol - Denies Alcohol Use, 02/11/2019 Substance Abuse - Denies Substance Abuse, 02/11/2019 Tobacco Former smoker, quit more than 30 days ago Tobacco Use:. Never Smokeless Tobacco Use:. Stopped age 26 Years., 06/29/2020 Family History Bilateral primary ovarian cancer: Aunt. Primary malignant neoplasm of lung: Brother. Immunizations Vaccine Date Status Comments influenza virus vaccine, inactivated - Not Given Patient Refuses [facility] Comment on above: Result Comment: Elec tronically Signed By: CORTES PEREZ, Miah Sher\.br\Date and Time Signed: 07/06/20 16:42 EST Provider Letter FTon 07-06 Provider Letter [facility] [place] Josette, [facility] [place] [address] Re: CATHERINE MAURICE Date of : 1970 Thank you for your referral of Catherine Maurice who was seen on consultation for neoplasm of the nose. An excisional biopsy is planned. I have enclosed my consultation notes for your review. I will be happy to follow Catherine should her symptoms persist. Sincerely, \ Miah Rubalcava MD General Surgery [facility] Formson 06-30-2020 Forms [id number] 0CD:127 [facility] Ambulatory Clinical Summaryo n 06-29-2020 Ambulatory Clinical Summary {[id number] [facility] Patient Educationon 06-29-19 21 Patient Education Preventing Skin Cancer, Adult Skin cancer is the most common type of cancer. There are three main types. Squamous cell and basal cell skin cancer are the most common. Melanoma skin cancer is the most dangerous type. Most skin cancers are caused by skin damage from exposure to ultraviolet (UV) light. UV light comes from the sun and from artificial tanning beds. Suntans and sunburns result from exposure to UV light. Skin cancer occurs most often in older people, but it is usually the result of damage done earlier in life. The tans and sunburns you get at any age can lead to skin cancer in the future. To help prevent this, you can take steps to protect yourself. What actions can I take to protect myself from skin cancer? Many people like to get a chinchilla, especially in the summer or when on vacation. However, chinchilla or burned skin is a sign of skin damage. It increases your risk for skin cancer. To lower your risk: Avoid exposure to UV light ? Try to stay out of the sun between 10 a.m. and 4 p.m. whenever possible. This is when the sun is at its strongest. Seek the shade during this time. ? Remember that you can also be exposed to UV rays on cloudy or hazy days. Sun exposure can be risky year-round, not just in the summer. ? Do not use a sunlamp, tanning bed, or tanning ferreira to get a chinchilla. If you really want a chinchilla, use an artificial tanning lotion. ? Avoid getting sunburned. Sunburns are more common on bright godfrey days, especially when you are in areas where the sun is reflected off water or snow. Use sunscreen and protective clothing ? Always use sunscreen?either a cream, lotion, or spray?when you are out in the sun. Keep sunscreen handy, such as in your gym bag or in your car, so that you will have it when you need it. ? Use a sunscreen with a sun protection factor (SPF) of at least 15. Use an SPF of 30 or higher if you are in bright sun, especially when you are out in the snow or on the water. ? Make sure your sunscreen protects you from UVA and UVB light. ? Use an adequate amount of sunscreen to cover exposed areas of skin. Put it on 30 minutes before you go out. Reapply it every 2 hours or anytime you come out of the water. ? When you are out in the sun, wear a broad-brimmed hat and clothing that covers your arms and legs. Wear wraparound sunglasses. Check your skin for changes ? Check your skin often from head to toe to look for any changes in the size, color, or shape of any moles or freckles. Check for any new moles or moles that bleed or become itchy. See your health care provider if you notice changes. ? Ask your health care provider about a total skin check. Ask if it should be part of your yearly physical or if you need to see a landing support specialist (contractor field hauling). Take other preventive measures ? Avoid exposure to harmful chemicals, such as arsenic. ? Have your home's water tested for arsenic and other chemicals. ? Take protective measures to avoid exposure to chemicals at work. ? Do not smoke any tobacco products, such as cigarettes, cigars, pipes, and e-cigarettes. If you need help quitting, ask your health care provider. ? Keep your immune system healthy. ? Stay up to date on all vaccines, including the human papillomavirus (HPV) vaccine. ? Eat at least 5 servings of fruits and vegetables every day. Why are these changes important? About 1 of every 5 people will get skin cancer. The best way to reduce your risk is to avoid skin damage from UV light. If you have teenagers in your house, they should know that just five bad sunburns as a teen could double their risk of skin cancer in the future. If you have younger children, always make sure to protect their skin from the sun. These changes can help reduce your risk of skin cancer, and they will also provide other health benefits, such as the following: ? Protecting your skin from the sun can help prevent painful sunburns, sun poisoning, and other skin damage and blemishes. This is especially important if: ? You have pale white skin, freckles, and red hair. ? You burn easily. ? Avoiding exposure to harmful chemicals can help prevent damage to other tissues in your body, such as your lungs, and prevent other types of cancer. ? Avoiding smoking tobacco can reduce your risk for other types of cancer and other health problems. ? Eating a healthy diet is good for your overall health. What can happen if changes are not made? If you do not make these changes, you will be at higher risk for skin cancer. If you develop skin cancer, the treatments could result in lost time from work and changes in your appearance from scars. The most dangerous type of skin cancer, melanoma, can be deadly if not found early. Where to find support For more support, talk to your primary health care provider or contractor field hauling. Where to find more information Learn more about skin cancer from: (more content not included)... [facility] Physician Referralon 021 Physician Referral [id number] 0CD:127 [facility] Encounters Encounter Date Encounter Type Care Provider Facility Start: 07-18-2022 End: 07-19-2022 [facility]ulatory [facility] Start: 07-18-2022 Encounter for gynecological examination (general) (routine) without abnormal findings [facility] HO[facility] [facility] Start: 07-18-2022 End: 07-18-2022 Patient encounter procedure Jose Finch MD Work Phone: [facility] Start: 07-18-2022 End: 07-18-2022 Subsequent hospital visit by physician Jose Finch MD Work Phone: [facility] Comment on above: Women's annual routi ne gynecological examination Start: 06-04-2022 End: 06-04-[address] JOSE FINCH Facility:[facility]1 Start: 05-23-2022 Encounter for genera l adult medical examination without abnormal findings DR JOSE FINCH [facility] Start: 05-19-2022 End: 05-20-[address] JOSE FINCH Facility:[facility] Start: 05-19-2022 End: 05-20-2022 Encounter for general adult medical examination without abnormal findings DR JOSE FINCH Facility:[facility] Start: 06-13-2021 End: 06-13-[address] JOSE FINCH Facility:[facility] Plan of Treatment Date Care Activity Detail Author Start: 01-01-2022 Influenza vaccination Flu vaccine (# 1) [employer] Start: 2020 Screening for malign ant neoplasm of breast Breast cancer screen [facility] [employer] Start: 2020 Shingles vaccine (1 of 2) Levine gles vaccine (1 of 2) [employer] [facility] [employer] Start: 2015 Screening for malign ant neoplasm of colon [employer] [facility] [employer] Start: 2005 Diabetes screen Diabetes screen [facility] [employer] Start: 1989 DTaP/Tdap/Td vaccine (1 - Tdap) DTaP/Tdap/Td vaccine (1 - Tdap) [facility] [employer] Start: 1988 Hepatitis C screening Hepatitis C sc reen [facility] [employer] Start: 1985 HIV screening HIV screen [facility] [employer] Start: 1982 Depression Screen Depression Screen [facility] [employer] Start: 1980 Lipid panel Lipids [place] [employer] Start: 01-23-1971 COVID-19 Vaccine (#1) COVID-19 Vacci ne (#1) [facility] [employer] End: 07-18-2022 Cytopathology procedure, preparation of smear, genital source [facility] Routine Women's annual routine gynecological examination 1 Occurrences starting 07/18/2022 until 07/18/2022 [employer] Phone: Comment on above: 1 Occurrences starti ng 07/18/2022 until 07/18/2022 Payers Date Payer Category Payer Unknown [id number] [id number] 1970 Unknown [id number] 1970 Unknown [id number] 1970 Unknown [id number] 1959 Private Health Insurance [id number] Social History Date Type Detail Facility Start: 07-18-[facility]22 [facility] [employer] Phone: History of tobacco use Current smoker [employer] Phone: History of tobacco use Cigarette Smoker [facility] Phone: Start: 07-18-2022 Tobacco use and exposure Smokeless tobacco non-user [employer] Phone: Start: 07-18-2022 Alcohol intake Ex-drinker (finding) [facility] Phone: Start: 07-18-2022 Alcohol Comment occ. [facility] [employer] Phone: Start: 1970 Sex Assigned At Not on file [facility] Phone: Clinical Note 10-05-2020 Note Date & Type Note Facility 10-05-2020 Note Chief Complaint Consultation on spot on the nose HPI Staff 50 year old female presents self today on consultation of reoccurrence of lesion located on the nose. Previously seen in office on 07/13/2020. Reports the site has not changed in size or texture. Patient advised the site does appear to be red in color at night and in the mornings. Denies pain or pressure. Not taking anything for pain. History of Present Illness 50 yo female with h/o nonhealing lesion right nares excised 07/2020, pathology with basal cell carcinoma, margins unknown since lesion fell apart; now with recurrent ulcerated area there, scabs over; doesn't heal; no asa or NSAID use. Review of Systems PHQ Score Initial Depression Screen Score: 0 Initial Depression Screen Score: 0 ROS - Provider Constitutional: no fever, no sweats, no weight loss. Eyes: no glasses, no blurred vision, no visual loss. ENMT: no dentures, no hoarseness, no swallowing difficulties, no hearing loss, no ear infection(s), no nose bleeds. Cardiovascular: high blood pressure, no chest pain, regular heartbeat, no heart murmur. Respiratory: no shortness of breath, no cough, no asthma, no wheezing. Gastrointestinal: no nausea, no vomiting, no diarrhea, no constipation, no blood in stool, no change in bowel habits, no abdominal pain, no hepatitis. Genitourinary: no kidney stones, no urine infection, no dysuria. Musculoskeletal: no pain, no weakness. Skin: no changing moles, no rash, yes skin lumps. Neurologic: no seizures, no epilepsy, no headache. Psychiatric: no emotional or psychiatric problem. Heme/Lymph: no bleeding problems, no anemia, no blood clots, no transfusions. Allergy/Immunologic: no swollen lymph nodes/glands, no IV drug abuse. Other: Additional ROS info: Except as noted in the above Review of Systems and in the History of Present Illness, all other systems have been reviewed and are negative or noncontributory. Physical Exam Vitals & Measurements T: 38.6 ?C (Tympanic) BP: 128/88 HT: 175.26 cm WT: 118 kg BMI: 38.42 HEENT: normal conjunctiva, sclera clear, no scleral icterus, EOM intact, PERRLA, oral mucosa moist without lesions. Neck: trachea midline, no mass, symmetric, no thyromegaly or nodules, no adenopathy Respiratory: lungs CTA, respirations non labored. Cardiovascular: regular rate and rhythm, no murmur, no pedal edema or varicosities. Musculoskeletal: normal gait, digits and nails without infection, nodes, cyanosis, clubbing. Skin: no rashes, right nares with 3 mm ulcerated area, no pigmentation; no subcutaneous nodules, induration. Psychiatric/Neuro: oriented to time, place, person, judgement normal, affect appropriate for age, insight intact, no focal deficits. Tests: review of old records completed, Discussed surgical options, risks, and possible complications with patient. Assessment/Plan 1. Basal cell carcinoma (BCC) of right side of nose (C44.311: Basal cell carcinoma of skin of nose) plan reexcision under local anesthesia at [facility], informed consent obtained. 2. Adult BMI 37.0-37.9 kg/sq m (Z68.37: Body mass index [BMI] 37.0-37.9, adult) recommend diet and exercise. Follow-up No qualifying data available Patient Education Basal Cell Carcinoma Exercising to Lose Weight Problem List/Past Medical History Ongoing Adult BMI 37.0-37.9 kg/sq m Anxiety Basal cell carcinoma (BCC) of right side of nose Depression Diabetic peripheral neuropathy DM (diabetes mellitus) Dysphagia HTN (hypertension) Hypercholesterolemia Neoplasm of uncertain behavior of skin of face Nevus Scoliosis Tubular adenoma Tubular adenoma of colon Uterine fibroid Historical BMI 36.0-36.9,adult Occult blood positive stool Procedure/Surgical History Colonoscopy (2010), Abdominal hysterectomy, Bilateral tubal ligation, Caesarean section, Cholecystectomy. Medications Nexium 40mg Cap - DR, 1 tab(s), Oral, Daily simvastatin 20 mg Tab, 20 mg= 1 tab(s), Oral, Once a day (at bedtime) Zetia 10 mg Tab, 10 mg= 1 tab(s), Oral, Daily Allergies penicillin (Rash) Social History Alcohol - Denies Alcohol Use, 02/11/2019 Substance Abuse - Denies Substance Abuse, 02/11/2019 Tobacco Former smoker, quit more than 30 days ago Tobacco Use:. Never Smokeless Tobacco Use:. Stopped age 26 Years., 10/05/2020 Family History Bilateral primary ovarian cancer: Aunt. Primary malignant neoplasm of lung: Brother. Immunizations Vaccine Date Status Comments influenza virus vaccine, inactivated - Not Given Patient Ref[facility] Comment on above: Result Comment: Elec tronically Signed By: CORTES PEREZ, Miah Love\Date and Time Signed: 10/05/20 15:32 EDT Clinical Note 06-29-2020 Note Date & Type Note Facility 06-29-2020 Note HPI Staff 49 year old established patient here on consultation from Dr. Finch for neoplasm of nose. Patient states it has been present for approximately 7 months and changes color. States by the end of the day it is dark red in appearance. Has been using Triamcinolone Acetonide 1% Cream daily and Mupirocin ointment 2% with little improvement. Would like to have removed for definitive diagnosis. Denies history of other uncertain neoplasms or malignancies. History of Present Illness 49 yo female with h/o DM, htn, referred for nonhealing lesion right nose; present for 7 months, changes color, no increase in size, starts to heal, then recurs, no injury to area, no personal or fmhx of skin cancer; uses tanning bed. no tobacco use. Review of Systems PHQ Score Initial Depression Screen Score: 0 ROS - Provider Constitutional: no fever, no sweats, no weight loss. Eyes: no glasses, no blurred vision, no visual loss. ENMT: no dentures, no hoarseness, no swallowing difficulties, no hearing loss, no ear infection(s), no nose bleeds. Cardiovascular: high blood pressure, no chest pain, regular heartbeat, no heart murmur. Respiratory: no shortness of breath, no cough, no asthma, no wheezing. Gastrointestinal: no nausea, no vomiting, no diarrhea, no constipation, no blood in stool, no change in bowel habits, no abdominal pain, no hepatitis. Genitourinary: no kidney stones, no urine infection, no dysuria. Musculoskeletal: no pain, no weakness. Skin: yes changing moles, no rash, no skin lumps. Neurologic: no seizures, no epilepsy, no headache. Psychiatric: no emotional or psychiatric problem. Heme/Lymph: no bleeding problems, no anemia, no blood clots, no transfusions. Allergy/Immunologic: no swollen lymph nodes/glands, no IV drug abuse. Other: Additional ROS info: Except as noted in the above Review of Systems and in the History of Present Illness, all other systems have been reviewed and are negative or noncontributory. Physical Exam Vitals & Measurements BP: 124/72 HT: 177.0 cm HT: 177 cm WT: 116.6 kg WT: 116.57 kg BMI: 37.21 HEENT: normal conjunctiva, sclera clear, no scleral icterus, EOM intact, PERRLA, oral mucosa moist without lesions. Neck: trachea midline, no mass, symmetric, no thyromegaly or nodules, no adenopathy Respiratory: lungs CTA, respirations non labored. Cardiovascular: regular rate and rhythm, no murmur, no pedal edema or varicosities. Gastrointestinal: soft, non distended, no tenderness, no masses, no palpable hernias, diastasis recti no, no hepatosplenomegaly; normal bs Lymphatic: no cervical adenopathy, no axillary adenopathy, no inguinal adenopathy. Musculoskeletal: normal gait, digits and nails without infection, nodes, cyanosis, clubbing. Skin: no rashes, right nares with 3 mm erythematous lesion, superficial ulceration, no bleeding, uniform border no ulcers, no subcutaneous nodules, induration. Psychiatric/Neuro: oriented to time, place, person, judgement normal, affect appropriate for age, insight intact, no focal deficits. Tests: review of old records completed, Discussed surgical options, risks, and possible complications with patient. Assessment/Plan 1. Neoplasm of uncertain behavior of skin of face (D48.5: Neoplasm of uncertain behavior of skin) plan excisional biopsy under local anesthesia in the office, for definitive diagnosis and treatment; informed consent obtained. Follow-up No qualifying data available Problem List/Past Medical History Ongoing Anxiety BMI 36.0-36.9,adult Depression Diabetic peripheral neuropathy DM (diabetes mellitus) Dysphagia HTN (hypertension) Hypercholesterolemia Neoplasm of uncertain behavior of skin of face Nevus Scoliosis Tubular adenoma Tubular adenoma of colon Uterine fibroid Historical Occult blood positive stool Procedure/Surgical History Colonoscopy (2010), Abdominal hysterectomy, Bilateral tubal ligation, Caesarean section, Cholecystectomy. Medications Adipex-P 37.5 mg Tab, 37.5 mg= 1 tab(s), Oral, Daily buPROPion 300 mg XL /24 hrs, 300 mg= 1 tab(s), Oral, Daily Nexium 40mg Cap - DR, 1 tab(s), Oral, Daily simvastatin 20 mg Tab, 20 mg= 1 tab(s), Oral, Once a day (at bedtime) triamcinolone Top 0.1% Crm, 1 valerie, Topical, BID Zetia 10 mg Tab, 10 mg= 1 tab(s), Oral, Daily Allergies penicillin (Rash) Social History Alcohol - Denies Alcohol Use, 02/11/2019 Substance Abuse - Denies Substance Abuse, 02/11/2019 Tobacco Former smoker, quit more than 30 days ago Tobacco Use:. Never Smokeless Tobacco Use:. Stopped age 26 Years., 06/29/2020 Family History Bilateral primary ovarian cancer: Aunt. Primary malignant neoplasm of lung: Brother. Immunizations Vaccine Date Status Comments influenza virus vaccine, inactivated - Not Given Patient Refuses [facility] Comment on above: Result Comment: Elec tronically Signed By: CORTES PEREZ, Miah Sher\jacobo\Date and Time Signed: 06/29/20 15:58 EST Evaluation note Note Date & Type Note Facility Evaluation note Diagnosis Women's annual routine gynecological examination documented in this encounter [employer] Work Phone: Summary Purpose Family History No Family History Records FoundNo Family History Records FoundNo Family History Records Found Advance Directives No Advanced Directives Records FoundNo Advanced Directives Records FoundNo Advanced Directives Records Found Additional Source Comments INFORMATION SOURCE (unrecogn ized section and content) DATE CREATED AUTHOR 10/31/2020 [facility] DATE CREATED AUTHOR AUTHOR'S ORGANIZ ATION 06/04/2022 [facility] DATE CREATED AUTHOR AUTHOR'S ORGANIZ ATION 08/02/2022 [facility] Care Teams (unrecognized sec tion and content) 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 This clinical summary was aggregated from multiple sources. Caution should be exercised in using it in the provision of clinical care. This summary normalizes information from multiple sources, and as a consequence, information in this document may materially change the coding, format and clinical context of patient data. In addition, data may be omitted in some cases. CLINICAL DECISIONS SHOULD BE BASED ON THE PRIMARY CLINICAL RECORDS. [employer] [facility]. provides no warranty or guarantee of the accuracy or completeness of information in this document.
[2024-02-29 08:15] LABS: Basophils Absolute Auto 0.1 10^3/uL (0.0-0.1); Basophils Percent Auto 0.7 % (0.2-2.0); Eosinophils Absolute Auto 0.1 10^3/uL (0.0-0.7); Eosinophils Percent Auto 1.4 % (0.9-7.0); Hematocrit 44.7 % (36.0-48.0); Hemoglobin 14.7 g/dL (12.0-16.0); Immature Granulocytes Abs Auto 0.06 10^3/uL (0.00-0.03); Immature Granulocytes Pct Auto 0.7 % (0.0-0.5); Lymphocytes Absolute Auto 2.6 10^3/uL (1.2-3.8); Lymphocytes Percent Auto 30.1 % (20.5-60.0); Mean Corpuscular HGB Conc 32.9 g/dL (29.9-35.2); Mean Corpuscular Hemoglobin 27.6 pg (26.7-34.0); Mean Corpuscular Volume 83.9 fL (81.0-99.0); Mean Platelet Volume 9.4 fL (9.5-13.5); Monocytes Absolute Auto 0.8 10^3/uL (0.3-0.8); Monocytes Percent Auto 8.6 % (1.7-12.0); Neutrophils Absolute Auto 5.1 10^3/uL (1.4-6.5); Neutrophils Percent Auto 58.5 % (43.0-75.0); Platelet Count 266 10^3/uL (150-450); Red Blood Count 5.33 10^6/uL (4.20-5.40); Red Cell Distribution Width 13.5 % (11.0-15.0); White Blood Count 8.7 10^3/uL (4.0-11.0)
[2024-02-29 08:21] LABS: Estimated Average Glucose 160 mg/dL; Glycohemoglobin A1C 7.2 % (4.5-6.2)
[2024-02-29 08:39] LABS: Alanine Aminotransferase 42 U/L (14-59); Albumin Globulin Ratio 1.1; Albumin Level 3.5 g/dL (3.4-5.0); Alkaline Phosphatase 121 U/L (46-116); Anion Gap 12.9; Aspartate Amino Transferase 28 U/L (15-37); BUN Creatinine Ratio 17.7; Bilirubin Total 0.5 mg/dL (0.2-1.0); Calcium 9.4 mg/dL (8.5-10.1); Carbon Dioxide 27.6 mmol/L (21.0-32.0); Chloride 103 mmol/L (98-107); Chol HDL Ratio 5.2; Cholesterol 244 mg/dL (<=200); Estimated GFR (African America >60 (>=60); Estimated GFR (Non-African Ame >60 (>=60); Free T3 2.99 pg/mL (2.18-3.98); Globulin 3.3 g/dL; Glucose 151 mg/dL (74-106); HDL Cholesterol 47 mg/dL (40-60); Potassium 4.5 mmol/L (3.5-5.1); Sodium 139 mmol/L (136-145); Thyroid Stimulating Hormone 1.192 uIU/mL (0.358-3.740); Total Protein 6.8 g/dL (6.4-8.2); Triglycerides 345 mg/dL (<=150)
== END 2024-02-29 07:08 | disposition home or self-care (01) ==
LOC: LAB 07:09
PROVIDERS: PCP Family Medicine; Visit Provider Family Medicine
DX: Z00.00 Encounter for general adult medical examination without abnormal findings (principal); R73.09 Other abnormal glucose; D64.9 Anemia, unspecified; E03.9 Hypothyroidism, unspecified
CPT/HCPCS: 36415; 80053; 80061; 83036; 83540; 84436; 84443; 84481; 85025

== ENCOUNTER 2024-09-04 14:06 | Outpatient (OUT) | payer OTHER, SELFPAY ==
--- NOTE | 2024-09-04 | XR_ITS ---
[address] [address] Patient Name: NUNO FREEMAN MRN: [id number] date: 1970 Sex: F Assigned Patient Location: [facility] Current Patient Location: [facility] Accession/Order Number: [id number] Exam Date: 09/04/2024 14:42 Report Date: 09/04/2024 14:44 At the request of: JOSE ZAYAS MD Procedure: XR foot RT 2V 2 views right foot plain film COMPARISON:08/24/2020 HISTORY: Acute right fifth digit pain. Injury. ACUTE FINDINGS: No acute displaced fracture DEGENERATIVE CHANGE: Unremarkable SOFT TISSUE FINDINGS: Unremarkable JOINT EFFUSION: None POSTOP CHANGES: None BONE MINERALIZATION: Adequate XR/XR foot RT 2V IMPRESSION: No acute displaced fracture Impression dictated by: Jhon Carbone M.D.09/04/2024 2:44 PM Dictation Location: [place] [address] Electronically authenticated by: [id number] Date: 09/04/2024 14:44
--- OUTSIDE RECORDS SUMMARY | 2024-09-04 14:30 | XMS_ITS | CCD ---
Author Organization [facility] Care Team Providers Care Body Artist Name Role Phone DR JOSE FINCH Primary [...] Unavailable Jose Finch MD Primary Care Provider [phone] JOSE FINCH Primary Care Unavailable JEFF BLOOD Referring Unavailable Allergies Allergy Classification Reported Allergen(s) Allergy Type Date of Onset Reaction(s) Facility (1 source) Penicillin Drug Allergy [facility] Repository (1 source) Penicillins Propensity to adverse reactions to drug 3 [facility] Medications Current Medications Medication Drug Class(es) Dates [...] source) Polyene Antifungal Start: 07-18-2022 nystatin (MYCOSTATIN) 987476 UNIT/GM powder Indications: Yeast infection of the [...] Diagnosis: Negative for intraepithelial lesion or malignancy. 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 BLD IMMUNO SCREENon OCCULT BLOOD Negative Normal NEGATIVE [facility] Comment on above: Performed By: #### O BSCRN #### [facility] [address] [place] [address] Dr. Rob Alarcon CBC AUTO DIFFon 05-19-2022 BASO # 0.1 103/ul Normal 0.0-0.1 [facility] Comment on above: Performed By: #### C BC #### [facility] [address] [place] [address] Dr. Rob Alarcon Basophils/100 WBC (Bld) 0.6 % Normal 0.2-2.0 [facility] Comment on above: Performed By: #### C BC #### [facility] [address] [place] [address] Dr. Rob Alarcon EO # 0.1 103/ul Normal 0.0-0.7 [facility] Comment on above: Performed By: #### C BC #### [facility] [address] [place] [address] Dr. Rob Alarcon Eosinophils/100 WBC (Bld) 1.2 % Normal 0.9-7.0 [facility] Comment on above: Performed By: #### C BC #### [facility] [address] [place] [address] Dr. Rob Alarcon Erythrocyte distribution width (RBC) [Ratio] 13.5 % Normal 11.0-15.0 [facility] Comment on above: Performed By: #### C BC #### [facility] [address] [place] [address] Dr. Rob Alarcon Hematocrit (Bld) [Volume fraction] 44.1 % Normal 36.0-48.0 [facility] Comment on above: Performed By: #### C BC #### [facility] [address] [place] [address] Dr. Rob Alarcon Hemoglobin (Bld) [Mass/Vol] 14.7 g/dL Normal 12.0-16.0 [facility] Comment on above: Performed By: #### C BC #### [facility] [address] [place] [address] Dr. Rob Alarcon IG # 0.14 10e3/ul Critically high 0.00-0.03 [facility] Comment on above: Performed By: #### C BC #### [facility] [address] [place] [address] Dr. Rob Alarcon IG % 1.7 % Critically high 0.0-0.5 [facility] Comment on above: Performed By: #### C BC #### [facility] [address] [place] [address] Dr. Rob Alarcon LYMPH # 2.6 103/ul Normal 1.2-3.8 [facility] Comment on above: Performed By: #### C BC #### [facility] [address] [place] [address] Dr. Rob Alarcon Lymphocytes/100 WBC (Bld) 31.4 % Normal 20.5-60.0 [facility] Comment on above: Performed By: #### C BC #### [facility] [address] [place] [address] Dr. Rob Alarcon MANUAL DIFF REQ NO Normal [facility] Comment on above: Performed By: #### C BC #### [facility] [address] [place] [address] Dr. Rob Alarcon MCH (RBC) [Entitic mass] 27.0 pg Normal 26.7-34.0 [facility] Comment on above: Performed By: #### C BC #### [facility] [address] [place] [address] Dr. Rob Alarcon MCHC (RBC) [Mass/Vol] 33.3 g/dL Normal 29.9-35.2 [facility] Comment on above: Performed By: #### C BC #### [facility] [address] [place] [address] Dr. Rob Alarcon MCV (RBC) [Entitic vol] 81.1 fL Normal 81.0-99.0 [facility] Comment on above: Performed By: #### C BC #### [facility] [address] [place] [address] Dr. Rob Alarcon MONO # 0.8 103/ul Normal 0.3-0.8 [facility] Comment on above: Performed By: #### C BC #### [facility] [address] [place] [address] Dr. Rob Alarcon Monocytes/100 WBC (Bld) 9.1 % Normal 1.7-12.0 [facility] Comment on above: Performed By: #### C BC #### [facility] [address] [place] [address] Dr. Rob Alarcon NEUT # 4.7 103/ul Normal 1.4-6.5 [facility] Comment on above: Performed By: #### C BC #### [facility] [address] [place] [address] Dr. Rob Alarcon Neutrophils/100 WBC (Bld) 56.0 % Normal 43.0-75.0 [facility] Comment on above: Performed By: #### C BC #### [facility] [address] [place] [address] Dr. Rob Alarcon Platelet mean volume (Bld) [Entitic vol] 9.2 fL Critically low 9.5-13.5 [facility] Comment on above: Performed By: #### C BC #### [facility] [address] [address] [address] Rob Alarcon PLT 308 103/ul Normal 150-450 [facility] Comment on above: Performed By: #### C BC #### [facility] [address] [address] [address] Rob Alarcon RBC 5.44 106/ul Critically high 4.20-5.40 [facility] Comment on above: Performed By: #### C BC #### [facility] [address] [address] [address] Rob Alarcon WBC 8.3 103/ul Normal 4.0-11.0 [facility] Comment on above: Performed By: #### C BC #### [facility] [address] [place] [address] Dr. Rob Alarcon FREE T3on 05-19-2022 FREE T3 3.38 pg/mlL Normal 2.18-3.98 [facility] Comment on above: Performed By: #### L IPID, TSH, T4, CMP, FT3 #### [facility] [address] [place] [address] Dr. Rob Alarcon GLYCOHEMOGLOBIN A1Con 2021 ADA RECOMMENDATION SEE BELOW Normal [facility] Comment on above: Result Comment: ADA RECOMMENDED LIMIT 4.0 - 6.0 ADA THERAPEUTIC TARGET < 7.0 ACTION SUGGESTED > 7.0 Performed By: #### A 1C #### [facility] [address] [place] [address] Dr. Rob Alarcon Glucose [Mass/Vol] 203 mg/dL Normal [facility] Comment on above: Performed By: #### A 1C #### [facility] [address] [place] [address] Dr. Rob Alarcon HbA1c (Bld) [Mass fraction] 8.7 % Critically high 4.5-6.2 [facility] Comment on above: Performed By: #### A 1C #### [facility] [address] [address] [address] Rob Alarcon LIPID PROFILEon 05-19-2022 CHOL-HDL RATIO NORM SEE BELOW Normal [facility] Comment on above: Result Comment: 3.3 - 4.4 LOW RISK 4.4 - 7.1 AVERAGE RISK 7.1 - 11.0 MODERATE RISK >11.0 HIGH RISK Performed By: #### L IPID, TSH, T4, CMP, FT3 #### [facility] [address] [place] [address] Dr. Rob Alarcon Cholesterol [Mass/Vol] 192 mg/dL Normal <=200 [facility] Comment on above: Performed By: #### L IPID, TSH, T4, CMP, FT3 #### [facility] [address] [place] [address] Dr. Rob Alarcon Cholesterol in HDL [Mass/Vol] 47 mg/dL Normal 40-60 [facility] Comment on above: Performed By: #### L IPID, TSH, T4, CMP, FT3 #### [facility] [address] [place] [address] Dr. Rob Alarcon Cholesterol in LDL [Mass/Vol] 82.6 mg/dL Normal [facility] Comment on above: Performed By: #### L IPID, TSH, T4, CMP, FT3 #### [facility] [address] [place] [address] Dr. Rob Alarcon Cholesterol.total/Ch olesterol in HDL [Mass ratio] 4.1 {ratio} Normal [facility] Comment on above: Performed By: #### L IPID, TSH, T4, CMP, FT3 #### [facility] [address] [place] [address] Dr. Rob Alarcon HDL NORMAL > or = 60 mg/dl - LO W CARDIOVASCULAR RISK <40 mg/dl - HIGH CARDIOVASCULAR RISK Normal [facility] Comment on above: Performed By: #### L IPID, TSH, T4, CMP, FT3 #### [facility] [address] [place] [address] Dr. Rob Alarcon LDL CALC NORMAL SEE BELOW Normal [facility] Comment on above: Result Comment: <100 mg/dl OPTIMAL 100 - 129 mg/dl NEAR OR ABOVE OPTIMAL 130 - 159 mg/dl BORDERLINE HIGH 160 - 189 mg/dl HIGH >190 mg/dl VERY HIGH Performed By: #### L IPID, TSH, T4, CMP, FT3 #### [facility] [address] [place] [address] Dr. Rob Alarcon Triglyceride [Mass/Vol] 312 mg/dL Critically high <=150 [facility] Comment on above: Performed By: #### L IPID, TSH, T4, CMP, FT3 #### [facility] [address] [place] [address] Dr. Rob Alarcon VLDL CALC 62.4 mg/dL Normal [facility] Comment on above: Performed By: #### L IPID, TSH, T4, CMP, FT3 #### [facility] [address] [place] [address] Dr. Rob Alarcon PROF 14(COMP METB)on 022 Albumin [Mass/Vol] 3.9 g/dL Normal 3.4-5.0 [facility] Comment on above: Performed By: #### L IPID, TSH, T4, CMP, FT3 #### [facility] [address] [place] [address] Dr. Rob Alarcon Albumin/Globulin [Mass ratio] 1.2 {ratio} Normal [facility] Comment on above: Performed By: #### L IPID, TSH, T4, CMP, FT3 #### [facility] [address] [place] [address] Dr. Rob Alarcon ALP [Catalytic activity/Vol] 162 U/L Critically high 46-116 [facility] Comment on above: Performed By: #### L IPID, TSH, T4, CMP, FT3 #### [facility] [address] [place] [address] Dr. Rob Alarcon ALT [Catalytic activity/Vol] 55 U/L Normal 14-59 [facility] Comment on above: Performed By: #### L IPID, TSH, T4, CMP, FT3 #### [facility] [address] [place] [address] Dr. Rob Alarcon Anion gap [Moles/Vol] 12.4 mmol/L Normal [facility] Comment on above: Performed By: #### L IPID, TSH, T4, CMP, FT3 #### [facility] [address] [address] [address] Rob Alarcon AST [Catalytic activity/Vol] 34 U/L Normal 15-37 [facility] Comment on above: Performed By: #### L IPID, TSH, T4, CMP, FT3 #### [facility] [address] [address] [address] Rob Alarcon Bilirubin [Mass/Vol] 0.4 mg/dL Normal 0.2-1.0 [facility] Comment on above: Performed By: #### L IPID, TSH, T4, CMP, FT3 #### [facility] [address] [place] [address] Dr. Rob Alarcon Calcium [Mass/Vol] 9.2 mg/dL Normal 8.5-10.1 [facility] Comment on above: Performed By: #### L IPID, TSH, T4, CMP, FT3 #### [facility] [address] [address] [address] Rob Alarcon Chloride [Moles/Vol] 101 mmol/L Normal 98-107 [facility] Comment on above: Performed By: #### L IPID, TSH, T4, CMP, FT3 #### [facility] [address] [address] [address] Rob Alarcon CO2 [Moles/Vol] 28.7 mmol/L Normal 21.0-32.0 [facility] Comment on above: Performed By: #### L IPID, TSH, T4, CMP, FT3 #### [facility] [address] [address] [address] Rob Alarcon Creatinine [Mass/Vol] 0.81 mg/dL Normal 0.55-1.02 [facility] Comment on above: Performed By: #### L IPID, TSH, T4, CMP, FT3 #### [facility] [address] [address] [address] Rob Alarcon EGFR-AF [place] ISLANDER >60 Normal >=60 [facility] Comment on above: Performed By: #### L IPID, TSH, T4, CMP, FT3 #### [facility] [address] [address] [address] Rob Alarcon EGFR-NON AF [place]LANDER >60 Normal >=60 [facility] Comment on above: Performed By: #### L IPID, TSH, T4, CMP, FT3 #### [facility] [address] [address] [address] Rob Alarcon Globulin (S) [Mass/Vol] 3.3 g/dL Normal [facility] Comment on above: Performed By: #### L IPID, TSH, T4, CMP, FT3 #### [facility] [address] [address] [address] oRb Alarcon Glucose [Mass/Vol] 186 mg/dL Critically high 74-[address] [facility] Comment on above: Performed By: #### L IPID, TSH, T4, CMP, FT3 #### [facility] [address] [place] [address] Dr. Rob Alarcon Potassium [Moles/Vol] 4.1 mmol/L Normal 3.5-5.1 [facility] Comment on above: Performed By: #### L IPID, TSH, T4, CMP, FT3 #### [facility] [address] [place] [address] Dr. Rob Alarcon Protein [Mass/Vol] 7.2 g/dL Normal 6.4-8.2 [facility] Comment on above: Performed By: #### L IPID, TSH, T4, CMP, FT3 #### [facility] [address] [place] [address] Dr. Rob Alarcon Sodium [Moles/Vol] 138 mmol/L Normal 136-145 [facility] Comment on above: Performed By: #### L IPID, TSH, T4, CMP, FT3 #### [facility] [address] [place] [address] Dr. Rob Alarcon Urea nitrogen [Mass/Vol] 10.0 mg/dL Normal 7.0-18.0 [facility] Comment on above: Performed By: #### L IPID, TSH, T4, CMP, FT3 #### [facility] [address] [place] [address] Dr. Rob Alarcon Urea nitrogen/Creatinine [Mass ratio] 12.3 mg/mg Normal [facility] Comment on above: Performed By: #### L IPID, TSH, T4, CMP, FT3 #### [facility] [address] [place] [address] Dr. Rob Alarcon T4on 05-19-2022 T4 [Mass/Vol] 8.10 ug/dL Normal 4.80-13.90 [facility] Comment on above: Performed By: #### L IPID, TSH, T4, CMP, FT3 #### [facility] [address] [place] [address] Dr. Rob Alarcon TSHon 05-19-2022 TSH 1.120 uIU/mL Normal 0.358-3.740 [facility] Comment on above: Performed By: #### L IPID, TSH, T4, CMP, FT3 #### [facility] [address] [place] [address] Dr. Rob Alarcon VITAMIN D 25 OHon 05-19-2022 VIT D 25-OH 47.4 ng/mL Normal [facility] Comment on above: Performed By: #### V ITAD #### [facility] [address] [place] [address] Dr. Rob Alarcon VIT D RANGES SEE BELOW Normal [facility] Comment on above: Result Comment: <20 ng/mL Vit D deficient 20 - <30 ng/mL Vit D insufficient 30 - 100 ng/mL Vit D sufficient >100 ng/mL Potential Toxicity Performed By: #### V ITAD #### [facility] [address] [place] [address] Dr. Rob Alarcon [facility]03 SARS-CoV-2 (COVID-19) RNA MARGARITA+probe Ql (Unsp spec) Detected Critically abnormal NOT DETECTED [facility] Comment on above: Result Comment: This test is not yet approved or cleared by the [place] FDA. When there are no FDA-approved or cleared tests available, and other criteria are met, FDA can make tests available under an emergency access mechanism called an Emergency Use Authorization (EUA). The EUA for this test is supported by the [place] of Health and Human Service's (HHS's) declaration [...] longer be used). Performed By: #### C [facility] #### [facility] [address] [place] [address] Dr. Rob Alarcon General Surgery Office/Clini c [...] inactivated - Not Given Patient Refuses Normal [facility] Comment on above: Result Comment: Elec tronically Signed By: CORTES PEREZ, Miah Love\Date and Time Signed: 10/31/20 10:11 EDT Ambulatory Clinical Summaryo n 10-26-2020 Ambulatory Clinical Summary {[id number]}CD:[id number] Normal [facility] Pathology Noteon 10-25-2020 Pathology Note [id number] 0CD:127 Normal [facility] Operative Reporton Operative Report [id number] 0CD:127 Normal [facility] Lab Reportson 10-17-2020 Lab Reports [id number] 0CD:127 Normal [facility] Consent for Procedure/Surger yon 10-06-2020 Consent for Procedure/Surgery [id number] 0CD:127 Normal [facility] Ambulatory Clinical Summaryo n 10-05-2020 Ambulatory Clinical Summary {[id number] [id number]}CD:[id number] Normal [facility] Patient Educationon 10-06-19 Patient Education Oncology Basal [...] tanning bed (more content not included)... Normal [facility] Patient Education Physical Medicine an d Rehabilitation [...] your health care provider or diet and nutritionist (dietitian). This may include: ? Eating fewer [...] weight borrero (more content not included)... Normal [facility] Ambulatory Clinical Summaryo n 07-13-2020 Ambulatory Clinical Summary {[id number]}CD:[id number] Normal [facility] General Surgery Office/Clini c Noteon 07-13-2020 General [...] inactivated - Not Given Patient Refuses Normal [facility] Comment on above: Result Comment: Elec tronically Signed By: CORTES PEREZ, Miah Love\Date and Time Signed: 07/13/20 13:31 EST Pathology Noteon 07-13-2020 Pathology Note [id number] 0CD:127 Normal [facility] Ambulatory Clinical Summaryo n 07-06-2020 Ambulatory Clinical Summary {[id number] [id number]}CD:[id number] Normal [facility] General Surgery Office/Clini c Noteon 07-06-2020 General [...] vaccine, inactivated - Not Given Patient Refuses [facility] Comment on above: Result Comment: Elec tronically Signed By: CORTES PEREZ, Miah Sher\.br\Date and Time Signed: 07/06/20 16:42 EST Provider Letter FTon 07-06 Provider Letter [facility] Jose Josette, [facility] [place] [address] Re: CATHERINE MAURICE Date of : 1970 Thank you for your referral of Catherine Maurice who was seen on consultation for neoplasm of the nose. An excisional biopsy is planned. I have enclosed my consultation notes for your review. I will be happy to follow Catherine should her symptoms persist. Sincerely, \ Miah Rubalcava MD General Surgery [facility] Formson 06-30-2020 Forms [id number] 0CD:127 [facility] Ambulatory Clinical Summaryo n 06-29-2020 Ambulatory Clinical Summary {[id number]-[id number]}CD:[id number] [facility] Patient Educationon 06-29-19 21 Patient Education Preventing [...] or if you need to see a storage specialist (creping machine operator). Take other preventive measures ? Avoid exposure [...] to your primary health care provider or creping machine operator. Where to find more information Learn more about skin cancer from: (more content not included)... [facility] Physician Referralon 021 Physician Referral [id number] 0CD:127 [facility] Encounters Encounter Date Encounter Type Care Provider Facility Start: 07-18-2022 End: 07-19-2022 [facility] Start: 07-18-2022 Encounter for gynecological examination (general) (routine) without abnormal findings [facility] Start: 07-18-2022 End: 07-18-2022 Patient encounter procedure Jose Finch MD Work Phone: [facility] Start: 07-18-2022 End: 07-18-2022 Subsequent hospital visit by physician Jose Finch MD Work Phone: [facility] Comment on above: Women's annual routi ne gynecological examination Start: 06-04-2022 End: 06-04-[address] JOSE FINCH Facility:[facility] Start: 05-23-2022 Encounter for genera l adult medical examination without abnormal findings DR JOSE FINCH [facility] Start: 05-19-2022 End: 05-20-[address] JOSE FINCH Facility:[facility] Start: 05-19-2022 End: 05-20-2022 Encounter for general adult medical examination without abnormal findings DR JOSE FINCH Facility:[facility] Start: 06-13-2021 End: 06-13-[address] JOSE FINCH Facility:[facility] Plan of Treatment Date Care Activity Detail Author Start: 01-01-2022 Influenza vaccination Flu vaccine (# 1) [employer] Start: 2020 Screening for malign ant neoplasm of breast Breast cancer screen [facility] [employer] Start: 2020 Shingles vaccine (1 of 2) Levine gles vaccine (1 of 2) [employer] [facility] Start: 2015 Screening for malign ant neoplasm of colon [employer] [facility] Start: 2005 Diabetes screen Diabetes screen [facility] [employer] Start: 1989 DTaP/Tdap/Td vaccine (1 - Tdap) DTaP/Tdap/Td vaccine (1 - Tdap) [facility] [employer] Start: 1988 Hepatitis C screening Hepatitis C sc reen [facility] [employer] Start: 1985 HIV screening HIV screen [facility] [employer] Start: 1982 Depression Screen Depression Screen [facility] [employer] Start: 1980 Lipid panel Lipids [place] [facility] [employer] Start: 01-23-1971 COVID-19 Vaccine (#1) COVID-19 Vacci ne (#1) [facility] [employer] End: 07-18-2022 Cytopathology procedure, preparation of smear, genital source [facility] Routine Women's annual routine gynecological examination 1 Occurrences starting 07/18/2022 until 07/18/2022 [employer] Phone: Comment on above: 1 Occurrences starti ng 07/18/2022 until 07/18/2022 Payers Date Payer Category Payer Unknown [id number] [id number] [id number] 1970 Unknown [id number] [id number] [id number] 1970 Unknown [id number] [id number] [id number] 1970 Unknown [id number] 1959 Private Health Insurance [id number] Social History Date Type Detail Facility Start: 07-18-2022 [facility] [employer] Phone: History of tobacco use Current smoker [employer] Phone: History of tobacco use Cigarette Smoker B ON [employer] Phone: Start: 07-18-2022 Tobacco use and exposure Smokeless tobacco non-user [employer] Phone: Start: 07-18-2022 Alcohol intake Ex-drinker (finding) VINI [employer] Phone: Start: 07-18-2022 Alcohol Comment occ. VINI [facility] [employer] Phone: Start: 1970 Sex Assigned At Not on file B ON [employer] Phone: Clinical Note 10-05-2020 Note Date & [...] nose) plan reexcision under local anesthesia at [facility], informed consent obtained. 2. Adult BMI 37.0-37.9 [...] vaccine, inactivated - Not Given Patient Refuses [facility] Comment on above: Result Comment: Elec tronically [...] vaccine, inactivated - Not Given Patient Refuses [facility] [facility] Comment on above: Result Comment: Elec tronically Signed By: CORTES PEREZ, Miah Sher\jacobo\Date and Time Signed: 06/29/20 15:58 EST Evaluation note Note Date & Type Note Facility Evaluation note Diagnosis Women's annual routine gynecological examination documented in this encounter [employer]Transfer Work Phone: Summary Purpose Family History No Family History Records FoundNo Family History Records FoundNo Family History Records Found Advance Directives No Advanced Directives Records FoundNo Advanced Directives Records FoundNo Advanced Directives Records Found Additional Source Comments INFORMATION SOURCE (unrecogn ized section and content) DATE CREATED AUTHOR 10/31/2020 [place] DATE CREATED AUTHOR AUTHOR'S ORGANIZ ATION 06/04/2022 [facility] DATE CREATED AUTHOR AUTHOR'S ORGANIZ ATION 08/02/2022 [facility] Care Teams (unrecognized sec tion and content) Body Artist Relationship Specialty Start Date End Date Jose Finch MD [address] [place] [address] PCP - General Family Medicine 06/11/22 FOR [...] BE BASED ON THE PRIMARY CLINICAL RECORDS. [employer] [facility]. provides no warranty or guarantee of the accuracy or completeness of information in this document.
== END 2024-09-04 14:07 | disposition home or self-care (01) ==
PROVIDERS: PCP Family Medicine; Visit Provider Family Medicine
DX: M79.671 Pain in right foot (principal)
CPT/HCPCS: 73620

== ENCOUNTER 2025-03-31 13:12 | Outpatient (OUT) | payer OTHER, SELFPAY ==
--- OUTSIDE RECORDS SUMMARY | 2025-03-31 13:29 | XMS_ITS | CCD ---
Author Organization [facility] CliniSywy Care Team Providers Care Logging Contractor Name Role Phone DR JOSE FINCH Primary Care Unavailable CHANA, DR GARCIA Consulting Unavailable CHANA, DR GARCIA Attending Unavailable CHANA, DR GARCIA Admitting Unavailable CHANA, DR GARCIA Primary Care Unavailable DR JOSE FINCH Consulting Unavailable DR JOSE FINCH Attending Unavailable CHANA, DR GARCIA Admitting Unavailable CHANA, DR GARCIA Admitting Unavailable DR JOSE FINCH Primary Care Unavailable DR JOSE FINCH Consulting Unavailable CHANA, DR GARCIA Attending Unavailable Jose Finch MD Primary Care Provider [phone] JOSE FINCH Primary Care Unavailable JEFF BLOOD Referring Unavailable Allergies Allergy ClassificationReported Allergen(s)Allergy TypeDate of OnsetReaction(s) Facility (1 source)PenicillinDrug AllergyThe [facility] Repository (1 source)PenicillinsPropensity to adverse reactions to jcgx05-01-5796IQE [facility] Medications Current Medications MedicationDrug Class(es)DatesSig (Normalized)Sig (Original)ezetimibe 10 mg oral tablet (1 source)Dietary Cholesterol Absorption InhibitorStart: 87-00-7446imgx 1 tablet by mouth once dailyezetimibe (ZETIA) 10 MG tablet TAKE 1 TABLET BY MOUTH EVERY DAY 0 06/18/2022 Activefluocinonide 0.0005 mg/mg topical ointment (1 source)CorticosteroidStart: 22-26-8531sxxtpcilkbra (LIDEX) 0.05 % ointment APPLY SPARINGLY TO AFFECTED AREA TWICE A DAY 0 07/04/2022 Activenystatin 100 unt/mg topical powder (1 source)Polyene AntifungalStart: 74-33-6936iqrvaycl (MYCOSTATIN) 555179 UNIT/GM powder Indications: Yeast infection of the skin Apply 3 times daily as needed for skin infection 30 g 3 07/18/2022 Activepioglitazone 15 mg oral tablet (1 source)Peroxisome Proliferator Receptor alpha Agonist, Peroxisome Proliferator Receptor gamma Agonist, ThiazolidinedioneStart: 74-02-8174ircu 1 tablet by mouth once dailypioglitazone (ACTOS) 15 MG tablet TAKE 1 TABLET BY MOUTH EVERY DAY 0 05/24/2022 Active0.25 mg, 0.5 mg dose 1.5 ml semaglutide 1.34 mg/ml pen injector (1 source)Start: 83-44-5725MBEKQHS, 0.25 OR 0.5 MG/DOSE, 2 MG/1.5ML SOPN simvastatin 20 mg oral tablet (1 source)HMG-CoA Reductase InhibitorStart: 19-69-4337bnne 1 tablet by mouth once dailysimvastatin (ZOCOR) 20 MG tablet TAKE 1 TABLET BY MOUTH EVERY DAY 0 06/10/2022 Activetriamcinolone acetonide 1 mg/ml topical cream (1 source)CorticosteroidStart: 38-81-7852lduwbdgjizsne (KENALOG) 0.1 % cream APPLY TO AFFECTED AREA TWICE A DAY 0 07/04/2022 Active Problems Active Problems Problem ClassificationProblemDateDocumented DateEpisodic/ChronicDiabetes mellitus without complication (1 source)Type 2 diabetes mellitus without complications; Translations: [TYPE 2 DM WITHOUT COMPLICATIONS]Onset: 66-21-5509OqiawlrUdutlfq and fatigue (1 source)Other fatigue; Translations: [OTHER FATIGUE]Onset: 32-03-2615Czuyaqrh Unclassified (2 sources)CONTACT W/AND (SUSP) EXPOS COVID-19; Translations: [CONTACT W/AND (SUSP) EXPOS COVID-19]Onset: 59-55-5368Xbdcbmjmzmfk (1 source)COUGH, UNSPECIFIED; Translations: [COUGH, UNSPECIFIED]Onset: 95-79-4157Xqoxu infection (1 source)COVID-19; Translations: [COVID-19]Onset: 06-15-2021 Past or Other Problems Problem ClassificationProblemDateDocumented DateEpisodic/ChronicOther upper respiratory infections (1 source)Acute sinusitis, unspecified; Translations: [ACUTE SINUSITIS UNSPECIFIED]Onset: 35-94-5552LoxtmobxKkxnelistmrn (1 source)CONTACT W/AND (SUSP) EXPOS COVID-19; Translations: [CONTACT W/AND (SUSP) EXPOS COVID-19]Onset: 06-13-2021 Results Test NameValueInterpretationReference RangeFacilityCytologyon 61-22-0616Wrwyjjql (NOTE) INTERPRETATION Vaginal material, (ThinPrep vial, Imaging-assisted review): Specimen Adequacy: Satisfactory for evaluation. Descriptive Diagnosis: Negative for intraepithelial lesion or malignancy. Roller Operator: KUSH MILES(ASCP) Electronically Signed Out /07/31/2022 Source: A: Vaginal material, (ThinPrep vial, Imaging-assisted review) Clinical History Hysterectomy Z01.419 Routine helmet hat brim cutter exam without abnormal findings High risk HPV DNA testing is requested if the diagnosis is abnormal GYNECOLOGIC CYTOLOGY REPORT Patient Name: CATHERINE MAURICE [facility] Rec: [id number] Path Number: [id number] [facility] NoteSick CONSULTING PATHOLOGISTS [facility] [address] [place] [id number] NoSouthern Ohio Medical CenterComment on above:Performed By: #### PPPVP #### [address] [id number] [employer] Farmworker: Carlos Ordonez MDOCC BLD IMMUNO SCREENon 41-87-8449MEKGZG BLOOD NegativeNormalNEGATIVEThe [facility] HospitalComment on above:Performed By: #### OBSCRN #### [facility] [address] [place] [address] Dr. Rob Cowan AUTO DIFFon 77-10-6552PWOR #0.1 103/ulNormal0.0-0.1The [facility] HospitalComment on above:Performed By: #### CBC #### [facility] [address] [place] [address] Dr. Rob Flemingphils/100 WBC (Bld)0.6 %Normal0.2-2.0[facility] Comment on above:Performed By: #### CBC #### [facility] [address] [place] [address] Dr. Rob Fournier #0.1 103/ulNormal0.0-0.7The [facility] HospitalComment on above: Performed By: #### CBC #### [facility] [address] [place] [address] Dr. Rob Huizarosinophils/100 WBC (Bld)1.2 %Normal0.9-7.0[facility] Comment on above:Performed By: #### CBC #### [facility] [address] [place] [address] Dr. Rob Huizarrythrocyte distribution width (RBC) [Ratio]13.5 %Ntfubs20.0-15.0 The [facility] HospitalComment on above:Performed By: #### CBC #### [facility] [address] [place] [address] Dr. Rob AlarconHematocrit (Bld) [Volume fraction]44.1 %Tqytsa24.0-48.0The [facility] HospitalComment on above:Performed By: #### CBC #### [facility] [address] [place] [address] Dr. Rob AlarconHemoglobin (Bld) [Mass/Vol]14.7 g/vXLqyrju14.0-16.0The [facility] HospitalComment on above:Performed By: #### CBC #### [facility] [address] [place] [address] Dr. Rob Solano #0.14 10e3/ulCritically high0.00-0.03The [facility] Comment on above:Performed By: #### CBC #### [facility] [address] [place] [address] Dr. Rob Solano %1.7 %Critically high0.0-0.5The [facility] HospitalComment on above:Performed By: #### CBC #### [facility] [address] [place] [address] Dr. Rob Domingo #2.6 103/ulNormal1.2-3.8The [facility] HospitalComment on above:Performed By: #### CBC #### [facility] [address] [place] [address] Dr. Rob Lezamamphocytes/100 WBC (Bld)31.4 %Lwtdes15.5-60.0The [facility] HospitalComment on above:Performed By: #### CBC #### [facility] [address] [place] [address] Dr. Rob AveryUAL DIFF REQNONormalThe [facility] HospitalComment on above: Performed By: #### CBC #### [facility] [address] [place] [address] Dr. Rob Spence (RBC) [Entitic mass]27.0 llNnddjk52.7-34.0The [facility] HospitalComment on above:Performed By: #### CBC #### [facility] [address] [place] [address] Dr. Rob Spence (RBC) [Mass/Vol]33.3 g/jOQcgnld93.9-35.2The [facility] HospitalComment on above:Performed By: #### CBC #### [facility] [address] [place] [address] Dr. Rob Spence (RBC) [Entitic vol]81.1 iNWdkhqc45.0-99.0The [facility] HospitalComment on above:Performed By: #### CBC #### [facility] [address] [place] [address] Dr. Rob Tolliver #0.8 103/ulNormal0.3-0.8The [facility] HospitalComment on above:Performed By: #### CBC #### [facility] [address] [place] [address] Dr. Rob Mcfaddenocytes/100 WBC (Bld)9.1 %Normal1.7-12.0The [facility] Comment on above:Performed By: #### CBC #### [facility] [address] [place] [address] Dr. Rob Linda #4.7 103/ulNormal1.4-6.5The [facility] HospitalComment on above:Performed By: #### CBC #### [facility] [address] [address] [address] Rob Arriolautrophils/100 WBC (Bld)56.0 %Meslol79.0-75.0The [facility] HospitalComment on above:Performed By: #### CBC #### [facility] [address] [address] [address] Rob AlarconPlatelet mean volume (Bld) [Entitic vol]9.2 fLCritically low 9.5-13.5The [facility] HospitalComment on above:Performed By: #### CBC #### [facility] [address] [place] [address] Dr. Rob AlarconPLT308 103/zrEewomq765-585Qsa [facility] on above: Performed By: #### CBC #### [facility] [address] [place] [address] Dr. Rob AlarconRBC5.44 106/ulCritically high4.20-5.40The [facility] Comment on above:Performed By: #### CBC #### [facility] [address] [place] [address] Dr. Rob AlarconWBC8.3 103/ulNormal4.0-11.0The [facility] Hospitalment on above: Performed By: #### CBC #### [facility] [address] [place] [address] Dr. Rob AlarconFREE T3on 38-17-7775OLWH T33.38 pg/mlLNormal2.18-3.98The [facility] on above:Performed By: #### LIPID, TSH, T4, CMP, FT3 #### [facility] [address] [place] [address] Dr. Rob AlarconGLYCOHEMOGLOBIN A1Con 08-78-9827JRS RECOMMENDATIONSEE BELOWNormal The [facility] HospitalComhenry [facility] on above:Result Comment: ADA RECOMMENDED LIMIT 4.0 - 6.0 ADA THERAPEUTIC TARGET < 7.0 ACTION SUGGESTED > 7.0Performed By: #### A1C #### [facility] [address] [place] [address] Dr. Rob AlarconGlucose [Mass/Vol]203 mg/dLSelect Medical Cleveland Clinic Rehabilitation Hospital, BeachwoodComment on above:Performed By: #### A1C #### [facility] [address] [place] [address] Dr. Rob AlarconHbA1c (Bld) [Mass fraction]8.7 %Critically high4.5-6.2[facility] CampusComment on above:Performed By: #### A1C #### [facility] [address] [place] [address] Dr. Rob AlarconLIPID PROFILEon 67-39-0161UOCO-HDL RATIO NORMSEE The [facility] Toledo Medical CenterComment on above:Result Comment: 3.3 - 4.4 LOW RISK 4.4 - 7.1 AVERAGE RISK 7.1 - 11.0 MODERATE RISK >11.0 HIGH RISKPerformed By: #### LIPID, TSH, T4, CMP, FT3 #### [facility] [address] [place] [address] Dr. Rob Coolesterol [Mass/Vol]192 mg/dLNormal<=200The [facility] Comment on above:Performed By: #### LIPID, TSH, T4, CMP, FT3 #### [facility] [address] [place] [address] Dr. Rob Coolesterol in HDL [Mass/Vol]47 mg/uJXkxymh61-85LtwKettering Health Main CampusComment on above:Performed By: #### LIPID, TSH, T4, CMP, FT3 #### [facility] [address] [place] [address] Dr. Rob Coolesterol in LDL [Mass/Vol]82.6 mg/dLNoGalion Community HospitalComment on above:Performed By: #### LIPID, TSH, T4, CMP, FT3 #### [facility] [address] [place] [address] Dr. Rob Cooper.total/Cholesterol in HDL [Mass ratio]4.1 {ratio} NormalKettering Health Main CampusComment on above:Performed By: #### LIPID, TSH, T4, CMP, FT3 #### [facility] [address] [address] [address] Rob Blevins NORMAL> or = 60 mg/dl - LOW CARDIOVASCULAR RISK <40 mg/dl - HIGH CARDIOVASCULAR RISKSelect Medical Cleveland Clinic Rehabilitation Hospital, BeachwoodComment on above:Performed By: #### LIPID, TSH, T4, CMP, FT3 #### [facility] [address] [address] [address] Rob AlarconLDL CALC NORMALSEE BELOWSelect Medical Cleveland Clinic Rehabilitation Hospital, BeachwoodComment on above:Result Comment: <100 mg/dl OPTIMAL 100 - 129 mg/dl NEAR OR ABOVE OPTIMAL 130 - 159 mg/dl BORDERLINE HIGH 160 - 189 mg/dl HIGH >190 mg/dl VERY HIGH Performed By: #### LIPID, TSH, T4, CMP, FT3 #### [facility] [address] [place] [address] Dr. Rob AlarconTriglyceride [Mass/Vol]312 mg/dLCritically high<=150The [facility] HospitalComment on above:Performed By: #### LIPID, TSH, T4, CMP, FT3 #### [facility] [address] [place] [address] Dr. Rob AlarconVLDL CALC62.4 mg/dLNoGalion Community HospitalComment on above: Performed By: #### LIPID, TSH, T4, CMP, FT3 #### [facility] [address] [place] [address] Dr. Rob AlarconPROF 14(COMP METB)on 47-64-6405Tgpfwhm [Mass/Vol]3.9 g/dLNormal 3.4-5.0The [facility] on above:Performed By: #### LIPID, TSH, T4, CMP, FT3 #### [facility] [address] [address] [address] Rob AlarconAlbumin/Globulin [Mass ratio]1.2 {ratio}NormalThe [facility] HospitalComhenry [facility] on above:Performed By: #### LIPID, TSH, T4, CMP, FT3 #### [facility] [address] [place] [address] Dr. Rob AlarconALP [Catalytic activity/Vol]162 U/LCritically iiyj15-745Ekb [facility] HospitalComment on above:Performed By: #### LIPID, TSH, T4, CMP, FT3 #### [facility] [address] [place] [address] Dr. Rob Sargent [Catalytic activity/Vol]55 U/ZZlipte70-52ThqKettering Health Main CampusComment on above:Performed By: #### LIPID, TSH, T4, CMP, FT3 #### [facility] [address] [place] [address] Dr. Rob Roche gap [Moles/Vol]12.4 mmol/LNormalK[facility]tering Health [facility] Campus Comment on above:Performed By: #### LIPID, TSH, T4, CMP, FT3 #### [facility] [address] [place] [address] Dr. Rob Rosa [Catalytic activity/Vol]34 U/BQmkdqt59-66Wvh [facility] HospitalComment on above:Performed By: #### LIPID, TSH, T4, CMP, FT3 #### [facility] [address] [place] [address] Dr. Rob AlarconBilirubin [Mass/Vol]0.4 mg/dLNormal0.2-1.0[facility] Comment on above:Performed By: #### LIPID, TSH, T4, CMP, FT3 #### [facility] [address] [place] [address] Dr. Rob AlarconCalcium [Mass/Vol]9.2 mg/dLNormal8.5-10.1[facility] Comment on above:Performed By: #### LIPID, TSH, T4, CMP, FT3 #### [facility] [address] [place] [address] Dr. Rob AlarconChloride [Moles/Vol]101 mmol/XWgvnbl92-024WltKettering Health Main Campus Comment on above:Performed By: #### LIPID, TSH, T4, CMP, FT3 #### [facility] [address] [place] [address] Dr. Rob AlarconCO2 [Moles/Vol]28.7 mmol/RYotjzr74.0-32.0[facility] Comment on above:Performed By: #### LIPID, TSH, T4, CMP, FT3 #### [facility] [address] [place] [address] Dr. Rob AlarconCreatinine [Mass/Vol]0.81 mg/dLNormal0.55-1.02[facility] CampusComment on above:Performed By: #### LIPID, TSH, T4, CMP, FT3 #### [facility] [address] [place] [address] Dr. Rob HuizarGFR-AF TURKS AND CAICOS ISLANDER>60Normal>=60The [facility] HospitalComment on above:Performed By: #### LIPID, TSH, T4, CMP, FT3 #### [facility] [address] [place] [address] Dr. Rob Barragan-NON AF TURKS AND CAICOS ISLANDER>60Normal>=60The [facility] HospitalComment on above:Performed By: #### LIPID, TSH, T4, CMP, FT3 #### [facility] [address] [place] [address] Dr. Rob AlarconGlobulin (S) [Mass/Vol]3.3 g/dLNormalThe [facility] HospitalComment on above:Performed By: #### LIPID, TSH, T4, CMP, FT3 #### [facility] [address] [place] [address] Dr. Rob AlarconGlucose [Mass/Vol]186 mg/dLCritically txul30-076Gbp [facility] HospitalComment on above:Performed By: #### LIPID, TSH, T4, CMP, FT3 #### [facility] [address] [place] [address] Dr. Rob AlarconPotassium [Moles/Vol]4.1 mmol/LNormal3.5-5.1The [facility] Comment on above:Performed By: #### LIPID, TSH, T4, CMP, FT3 #### [facility] [address] [place] [address] Dr. Rob AlarconProtein [Mass/Vol]7.2 g/dLNormal6.4-8.2The [facility] Comment on above:Performed By: #### LIPID, TSH, T4, CMP, FT3 #### [facility] [address] [place] [address] Dr. Rob AlarconSodium [Moles/Vol]138 mmol/KLflkzi547-455Buo [facility] Comment on above:Performed By: #### LIPID, TSH, T4, CMP, FT3 #### [facility] [address] [place] [address] Dr. Rob AlarconUrea nitrogen [Mass/Vol]10.0 mg/dLNormal7.0-18.0The [facility] HospitalComment on above:Performed By: #### LIPID, TSH, T4, CMP, FT3 #### [facility] [address] [place] [address] Dr. Rob Garcia nitrogen/Creatinine [Mass ratio]12.3 mg/mgNoGalion Community HospitalComment on above:Performed By: #### LIPID, TSH, T4, CMP, FT3 #### [facility] [address] [place] [address] Dr. Rob [place]4on 67-07-0526V0 [Mass/Vol]8.10 ug/dLNormal4.80-13.90The [facility] HospitalComment on above:Performed By: #### LIPID, TSH, T4, CMP, FT3 #### [facility] [address] [place] [address] Dr. Rob HarkinsHomckenna 99-64-8674QIQ0.120 uIU/mLNormal0.358-3.740The [facility] HospitalComment on above:Performed By: #### LIPID, TSH, T4, CMP, FT3 #### [facility] [address] [place] [address] Dr. Rob AlarconVITAMIN D 25 OHon 83-62-5134AKX D 25-OH47.4 ng/mLNormalThe [facility] HospitalComhenry [facility] on above:Performed By: #### VITAD #### [facility] [address] [place] [address] Dr. Rob Dee D RANGESSEE BELOWSelect Medical Cleveland Clinic Rehabilitation Hospital, BeachwoodComment on above: Result Comment: <20 ng/mL Vit D deficient 20 - <30 ng/mL Vit D insufficient 30 - 100 ng/mL Vit D sufficient >100 ng/mL Potential ToxicityPerformed By: #### VITAD #### [facility] [address] [place], [place] [id number] Dr. Rob AlarconCovid-19 PCR (CVDNASHOBA VALLEY [facility])on 76-56-4258MEXI-CoV-2 (COVID-19) RNA MARGARITA+probe Ql (Unsp spec)DetectedCritically abnormalNOT DETECTEDThe [facility] HospitalComment on above:Result Comment: This test is not yet approved or cleared by the [place] FDA. When there are no FDA-approved or cleared tests available, and other criteria are met, FDA can make tests available under an emergency access mechanism called an Emergency Use Authorization (EUA). The EUA for this test is supported by the [place] of Health and Human Service's (HHS's) declaration [...] no longer be used). Performed By: #### CVDTBH #### [facility] [address] [place], [place] [address] Dr. Rivas [facility] Surgery Office/Clinic Noteon 93-91-7837Mbabibq Surgery Office/Clinic NoteChief Complaint post operative visit. HPI Staff 7 [...] swallowing difficulties, no hearing loss, no ear infection(s),no nose bleeds. Cardiovascular: high blood pressure, no [...] virus vaccine, inactivated - Not Given Patient RefusesMount Carmel Health SystemComment on above:Result Comment: Electronically Signed By: Miah RUBALCAVA MD\Date and Time Signed: 10/31/20 10:11 EDTAmbulatory Clinical Summaryon 03-16-0941Rjrvucfmgr Clinical Summary {12-qo-8p-44-b8-1y-60-6y-wc-54-80-6j-be-d0-a1-81}CD:[id number] Carmel Health SystemPathology Noteon 62-96-1124Upmmfmniv Note [id number]#1.00CD:[address] [place], [place] [address]Operative Reporton 74-19-0739Znwwvslzi Report [id number]#1.00CD:[address] [place], [place] [address]Lab Reportson 73-85-2722Nqd Reports [id number]#1.00CD:[address] [place], [place] [address]Consent for Procedure/Surgeryon 82-16-6979Effnscv for Procedure/Surgery [id number]#1.00CD:[address] [place], [place] [address]Ambulatory Clinical Summaryon 74-63-4302Eiseqxeuev Clinical Summary {2i-1l-57-ms-3p-21-03-81-7g-6o-fy-1i-20-1d-f6-45}CD:[id number] Carmel Health SystemPatient Educationon 08-55-3065Qufpkao EducationOncology Basal Cell Carcinoma Basal cell carcinoma is the most common form of skin cancer. It begins in the basal cells, which are at the bottom of the outer skin layer (epidermis). Basal cell carcinoma can almost always be cured. It rarely spreads to other areas of the body (metastasizes). It may come back at the same location(recur), but it can be treated again if this happens. Basal cell carcinoma occurs most often on parts of the body that are frequently exposed to the sun,such as: ? Parts of the head, including [...] cell carcinoma often shows up as a sorethat does not heal. ? A reddish area [...] are removed layer by layer until all ofthe tumor has been removed. ? Surgical removal [...] outside. Also reapply it after swimming and afterexcessive sweating. ? Always wear hats, protective clothing, and UV-blocking sunglasses when you are outdoors. ? Do not use tanning bed (more content not included)...[facility] EducationTrinity Health Livingston Hospitalsical Medicine and Rehabilitation Exercising to Lose Weight Exercise is structured, repetitive physical activity to improve fitness and health. Getting regularexercise is important for everyone. It is especially important if you are overweight. Being overweight increases your risk of heart disease, stroke, diabetes, high blood pressure, and several types of cancer. Reducing your calorie intake and exercising can help you lose weight. Exercise is usually categorized as moderate or vigorous intensity. To lose weight, most people needto do a certain amount of moderate-intensity or [...] you eat, you lose weight. Exercise also reducesbody fat and builds muscle. The more muscle [...] you need and what types of activities aresafe for you. What actions can I take to lose weight? Nutrition ? Make changes to your diet as told by your health care provider or diet and supervisory it specialist (dietitian). This may include: ? Eating fewer [...] goals. Your health care provider can help youmake an exercise plan that works for you. [...] heart disease, stroke, diabetes, high blood pressure, andseveral types of cancer. ? 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 Patient states sutures fellout on Saturday. Denies bleeding or drainage from [...] swallowing difficulties, no hearing loss, no ear infection(s),no nose bleeds. Cardiovascular: normal blood pressure, no [...] virus vaccine, inactivated - Not Given Patient RefusesNoDayton Children's HospitalComment on above:Result Comment: Electronically Signed By: CORTES PEREZ, Miah Love\Date and Time Signed: 07/13/20 13:31 ESTPathology Noteon 32-76-1441Mceqhehzn [id number]:127 [facility] SystemAmbulatory Clinical Summaryon 07-06-2020 Ambulatory Clinical Summary {94-p2-ej-77-[id number]-q9-7q-d4-11-77-94-a2-84}CD:[id number] St[facility] HospitalGeneral Surgery Office/Clinic Noteon 57-95-8159Mcykxyc Surgery Office/Clinic NoteHistory of Present Illness for excision nonhealing lesion right nares; no change. Review of Systems ROS - Provider Constitutional: no fever, no sweats, no weight loss. Eyes: no glasses, no blurred vision, no visual loss. ENMT: no dentures, no hoarseness, no swallowing difficulties, no hearing loss, no ear infection(s),no nose bleeds. Cardiovascular: normal blood pressure, no [...] virus vaccine, inactivated - Not Given Patient RefusesMount Carmel Health SystemComment on above:Result Comment: Electronically Signed By: CORTES PEREZ, Miah Love\Date and Time Signed: 07/06/20 16:42 ESTProvider Letter [facility] 26-98-3525Tiznjpxh Letter [facility] Jose Finch, [facility] [place] [address] Re: CATHERINE MAURICE Date of : 1970 Thank you for your referral of Catherine Maurice who was seen on consultation for neoplasm of the nose.An excisional biopsy is planned. I have enclosed my consultation notes for your review. I will be happy to follow Catherine should her symptoms persist. Sincerely, \ Miah Rubalcava MD General SurgeryMount Carmel Health SystemFormson 86-90-4104Mngjr [id number]:127NoDayton Children's HospitalAmbulatory Clinical Summaryon 17-52-0294Lnxdcztcgf Clinical Summary {p2-g6-33-j1-1l-j4-79-u1-96-o8-0i-3z-0b-06-be-7b}CD:138530BhvohrSdimagDayton Children's HospitalPatient Educationon 87-78-6681Lcvryli EducationPreventing Skin Cancer, Adult Skin cancer is the most common type of cancer. There are three main types. Squamous cell and basal cell skin cancer are the most common. Melanoma skin cancer is the most dangerous type. Most skin cancers are caused by skin damage from exposure to ultraviolet (UV) light. UV light comesfrom the sun and from artificial tanning beds. [...] or when on vacation. However, chinchilla or burnedskin is a sign of skin damage. It [...] you are out in the sun. Keep sunscreenhandy, such as in your gym bag or [...] or if you need to see a data integrity specialist (administrative assistant coordinator). Take other preventive measures ? Avoid exposure to harmful chemicals, such as arsenic. ? Have your home's water tested for arsenic and other chemicals. ? Take protective measures to avoid exposure to chemicals at work. ? Do not smoke any tobacco products, such as cigarettes, cigars, pipes, and e- cigarettes. If you need help quitting, ask your [...] work and changes in your appearance from scars.The most dangerous type of skin cancer, melanoma, can be deadly if not found early. Where to find support For more support, talk to your primary health care provider or administrative assistant coordinator. Where to find more information Learn more about skin cancer from: (more content not included)...[facility] SystemPhysician Referralon 72-51-2971Hjftjbhay Referral [id number]:127NoDayton Children's Hospital Encounters Encounter DateEncounter TypeCare ProviderFacilityStart: 07-18-2022 End: 57-08-6630qfqvmbesawMQEZJIU M HOYMercy Aurora HospitalStart: 07-18-2022 Encounter for gynecological examination (general) (routine) without abnormal findingsJOSE Christensen [facility] HospitalStart: 07-18-2022 End: 86-34-2513Liejrbf encounter procedureJose Finch MD Work Phone: mthz LaboratoryStart: 07-18-2022 End: 32-93-5773Arhxrdiaaw hospital visit by physicianJose Finch MD Work Phone: mthz LaboratoryComment on above:Women's annual routine gynecological examinationStart: 06-04-2022 End: 51-28-8043bzsbqlhkqrCA JOSE FINCHFacility:T0Owuvt: 14-49-2851Gdlfnkssy for general adult medical examination without abnormal findingsDR JOSE Hernán[facility] HospitalStart: 05-19-2022 End: 68-86-3608nukjrgodetDU JOSE HOYFacility:Y2Mjvhi: 05-19-2022 End: 19-55-2162Tpddqfaie for general adult medical examination without abnormal findingsDR JOSE FINCHFacility:G5Uqbey: 06-13-2021 End: 20-40-9170ycxpxeusqvVN JOSE HOYFacility:H1 Plan of Treatment DateCare ActivityDetailAuthorStart: 49-26-7402Cqfmrramj vaccinationFlu vaccine (#1)[facility]Start: 60-34-1020Icqhdcgyg for malignant neoplasm of breastBreast cancer screenPoplar Springs Hospitalart: 79-35-1204Kysucrpk vaccine (1 of 2)Shingles vaccine (1 of 2)[facility] Hospitalart: 44-15-1573Gegpsdolp for malignant neoplasm of colonBON [facility] Start: 83-70-8286Qvxaqegw screenDiabetes screenCARILION TAZEWELL COMMUNITY HOSPITALStart: 17-32-7554OIrM/Tdap/Td vaccine (1 - Tdap)DTaP/Tdap/Td vaccine (1 - Tdap)[facility] Hospitalart: 25-40-1954Btmeoligh C screeningHepatitis C screenCARILION TAZEWELL COMMUNITY HOSPITALStart: 13-25-9111AFG screeningHIV screenPoplar Springs Hospitalart: 71-00-2912Qnrkmvrmjf ScreenDepression ScreenPoplar Springs Hospitalart: 09-32-4434Dtjjp panelLipidsCARILION TAZEWELL COMMUNITY HOSPITALStart: 59-31-1861AVTDM-19 Vaccine (#1)COVID-19 Vaccine (#1)[facility] End: 43-29-5217Oxbrqgslbddcn procedure, preparation of smear, genital sourcePAP SMEAR Lab Routine Women's annual routine gynecological examination 1 Occurrences starting 07/18/2022 until 07/18/2022[facility] [employer] Work Phone: comment on above:1 Occurrences starting 07/18/2022 until 07/18/2022 Payers DatePayer CategoryPayerPolicy [id number] [id number] [id number] 2..[id number] Health [id number] Social History DateTypeDetailFacilityStart: 66-36-7442Uwigmrd smoking status NHISEx-smokerMindBodyGreen Phone: History of tobacco useCurrent smokerMindBodyGreen Phone: History of tobacco useCigarette SmokerMindBodyGreen Phone: start: 28-04-7199Yrobyib use and exposureSmokeless tobacco non-userMindBodyGreen Phone: start: 11-17-7096Uiablbj intakeEx-drinker (finding)[facility] Phone: start: 87-86-5136Fmysrni Commentocc.[employer] Phone: start: 64-75-0496Vcc Assigned At BirthNot on fileMindBodyGreen Phone: Clinical Note 10-05-2020 Note Date & XgurQnpePuwxhrft02-82-1642 NoteChief Complaint Consultation on spot on the nose [...] swallowing difficulties, no hearing loss, no ear infection(s),no nose bleeds. Cardiovascular: high blood pressure, no [...] nose) plan reexcision under local anesthesia at [facility], informed consent obtained. 2. Adult [...] virus vaccine, inactivated - Not Given Patient RefusesUc Medical CenterComment on above:Result Comment: Electronically Signed By: CORTES PEREZ, Miah Love\Date and Time Signed: 10/05/20 15:32 EDT Clinical Note 06-29-2020 Note Date & ZmgtTsqdLgqnwxlm34-03-9658 [facility] Staff 49 year old established patient here [...] no injury to area, no personal or fmhxof skin cancer; uses tanning bed. no tobacco use. Review of Systems PHQ Score Initial Depression Screen Score: 0 ROS - Provider Constitutional: no fever, no sweats, no weight loss. Eyes: no glasses, no blurred vision, no visual loss. ENMT: no dentures, no hoarseness, no swallowing difficulties, no hearing loss, no ear infection(s),no nose bleeds. Cardiovascular: high blood pressure, no [...] virus vaccine, inactivated - Not Given Patient RefusesUc Medical CenterComment on above:Result Comment: Electronically Signed By: CORTES PEREZ, Miah Love\Date and Time Signed: 06/29/20 15:58 EST Evaluation note Note Date & TypeNoteFacilityEvaluation note* Diagnosis Women's annual routine gynecological examination documented in this encounter [facility] Work Phone: Summary Purpose Family History No Family History Records FoundNo Family History Records FoundNo Family History Records Found Advance Directives No Advanced Directives Records FoundNo Advanced Directives Records FoundNo Advanced Directives Records Found Additional Source Comments INFORMATION SOURCE (unrecogn ized section and content) DATE CREATED AUTHOR 10/31/2020 [facility] DATE CREATED AUTHOR AUTHOR'S ORGANIZ ATION 06/04/2022 [facility] DATE CREATED AUTHOR AUTHOR'S ORGANIZ ATION 08/02/2022 [facility] Care Teams (unrecognized sec tion and content) Team MemberRelationshipSpecialtyStart DateEnd Date Jose Finch MD [address] [place] [address] PCP - GeneralFamily Medicine06/11/22 FOR RECORDS PERTAINING TO PATIENTS WHO ARE [...] BE BASED ON THE PRIMARY CLINICAL RECORDS. [facility]. provides no warranty or guarantee of the accuracy or completeness of information in this document.
[2025-03-31 14:34] LABS: Hematocrit 44.3 % (36.0-48.0); Hemoglobin 14.5 g/dL (12.0-16.0); Immature Granulocytes Abs Auto 0.05 10^3/uL (0.00-0.03); Immature Granulocytes Pct Auto 0.6 % (0.0-0.5); Lymphocytes Absolute Auto 3.3 10^3/uL (1.2-3.8); Mean Corpuscular HGB Conc 32.7 g/dL (29.9-35.2); Mean Corpuscular Hemoglobin 27.5 pg (26.7-34.0); Mean Corpuscular Volume 84.1 fL (81.0-99.0); Platelet Count 272 10^3/uL (150-450); Red Blood Count 5.27 10^6/uL (4.20-5.40); White Blood Count 8.8 10^3/uL (4.0-11.0)
[2025-03-31 15:19] LABS: Iron 65.0 ug/dL (50.0-170.0)
[2025-03-31 15:47] LABS: Alanine Aminotransferase 26 U/L (14-59); Albumin Globulin Ratio 1.2; Albumin Level 3.9 g/dL (3.4-5.0); Alkaline Phosphatase 114 U/L (46-116); Anion Gap 13.3; Aspartate Amino Transferase 18 U/L (15-37); Blood Urea Nitrogen 16.0 mg/dL (7.0-18.0); Calcium 9.4 mg/dL (8.5-10.1); Carbon Dioxide 27.6 mmol/L (21.0-32.0); Chloride 102 mmol/L (98-107); Cholesterol 212 mg/dL (<=200); Estimated GFR (African America >60 (>=60 mL/min/1.73m^2); Estimated GFR (Non-African Ame >60 (>=60 mL/min/1.73m^2); Free T3 3.30 pg/mL (2.18-3.98); Globulin 3.2 g/dL; Glucose 89 mg/dL (74-106); HDL Cholesterol 50 mg/dL (40-60); Potassium 3.9 mmol/L (3.5-5.1); Sodium 139 mmol/L (136-145); Thyroid Stimulating Hormone 1.015 uIU/mL (0.358-3.740); Total Protein 7.1 g/dL (6.4-8.2); Triglycerides 229 mg/dL (<=150); VLDL CHOLESTEROL 45.8 mg/dL
== END 2025-03-31 13:13 | disposition home or self-care (01) ==
PROVIDERS: PCP Family Medicine; Visit Provider Family Medicine
DX: Z00.00 Encounter for general adult medical examination without abnormal findings (principal)
CPT/HCPCS: 36415; 80053; 80061; 83036; 83540; 84436; 84443; 84481; 85025